=== PATIENT | male | born 1985 | race Caucasian/White ===

== ENCOUNTER 2018-05-26 16:29 | Emergency (ER) | payer OTHER ==
[2018-05-26 16:47] VITALS: BP 144/87; PULSE 62; TEMP 98.2; BMI 35.2
[2018-05-26] MEDS ORDERED: PANTOPRAZOLE SODIUM 40 MG in SODIUM CHLORIDE 100 ML IVPB ONE (16:48)
[2018-05-26] MEDS ORDERED: SODIUM CHLORIDE 1,000 ML IV STA (16:48)
[2018-05-26] MEDS ORDERED: KETOROLAC TROMETHAMINE 30 MG/1 ML VIAL IVPUSH ONE (16:48)
[2018-05-26] MEDS ORDERED: ONDANSETRON 4 MG/2 ML VIAL IVPUSH ONE (16:49)
--- NOTE | 2018-05-26 16:52 | PDOC ---
Rapid Medical Evaluation Chief Complaint: Pain, Acute Time Seen by Provider: 05/26/18 16:48 Medical Evaluation: Allergies Allergy/AdvReac Type Severity Reaction Status Date / Time No Known Allergies Allergy Verified 05/26/18 16:43 Vital Signs Temp Pulse Resp BP Pulse Ox 98.2 F 62 19 144/87 98 05/26/18 16:43 05/26/18 16:43 05/26/18 16:43 05/26/18 16:43 05/26/18 16:43 05/26/18 16:50 Pt c/o: epigastric pain with nausea x 3 days, worsening, denies GI d/o, took pepto bismal w/ mod effect yesterday Pt on exam: Vss< no ruq pain, + epigastric tenderness Pt ordered for : labs, meds pt to proceed to the ED Discharge Disposition - Diagnosis Epigastric abdominal pain - Referrals - Patient Instructions - Post Discharge Activity
[2018-05-26] MEDS ORDERED: PANTOPRAZOLE SODIUM 40 MG/100 ML BAG IVPB ONE (17:06)
[2018-05-26 17:21] LABS: BASO % 0.5 % (0-2.0); EOS % 0.8 % (0-4.5); HEMATOCRIT 45.9 % (35.4-49); HEMOGLOBIN 15.9 GM/dL (11.7-16.9); LYMPH % 23.5 % (8-40); MCH 30.3 pg (25.7-33.7); MCHC 34.5 g/dl (32.0-35.9); MEAN CELL VOLUME 87.6 fl (80-96); MEAN PLT VOLUME 7.2 fl (7.5-11.1); MONO % 4.8 % (3.8-10.2); NEUT % 70.4 % (42.8-82.8); PLATELET COUNT 268 K/MM3 (134-434); RBC 5.24 M/mm3 (4.00-5.60); RDW 13.6 % (11.9-15.9); WHITE BLOOD COUNT 8.4 K/mm3 (4.0-10.0)
[2018-05-26 17:24] LABS: URINE APPEARANCE CLEAR; URINE BILIRUBIN NEGATIVE (<2.0 mg/dL); URINE COLOR YELLOW; URINE GLUCOSE (UA) NEGATIVE (NEGATIVE); URINE KETONE NEGATIVE (NEGATIVE); URINE LEUK ESTERASE NEGATIVE (NEGATIVE); URINE NITRITE NEGATIVE (NEGATIVE); URINE PROTEIN NEGATIVE (NEGATIVE); URINE UROBILINOGEN NEGATIVE mg/dL (0.2-1.0)
[2018-05-26 17:45] LABS: ALBUMIN 4.2 g/dl (3.4-5.0); ALK PHOS 77 U/L (45-117); ANION GAP 8 (8-16); BILIRUBIN,TOTAL 0.6 mg/dL (0.2-1.0); BLOOD UREA NITROGEN 15 mg/dL (7-18); CALCIUM 8.9 mg/dL (8.5-10.1); CHLORIDE 107 mmol/L (98-107); CO2 26 mmol/L (21-32); CREATININE 1.1 mg/dL (0.7-1.3); GLUCOSE,RANDOM 108 mg/dL (74-106); LIPASE 90 U/L (73-393); MAGNESIUM 2.3 mg/dL (1.8-2.4); POTASSIUM 3.8 mmol/L (3.5-5.1); SGOT/AST 26 U/L (15-37); SGPT/ALT 38 U/L (12-78); SODIUM 141 mmol/L (136-145); TOT PROT 7.7 g/dl (6.4-8.2)
[2018-05-26] MEDS ORDERED: KETOROLAC TROMETHAMINE 30 MG/1 ML VIAL ONE (18:52)
[2018-05-26] MEDS ORDERED: ONDANSETRON 4 MG/2 ML VIAL ONE (18:52)
[2018-05-26] MEDS ORDERED: LIDOCAINE VISCOUS 2% ORAL/TOP 20 ML UNIT-DOSE CUP MM ONE (19:03)
[2018-05-26] MEDS ORDERED: MAG HYDROX/AL HYDROX/SIMETH 30 ML UNIT-DOSE CUP PO ONE (19:03)
--- NOTE | 2018-05-26 19:03 | PDOC ---
History of Present Illness - General Chief Complaint: Pain, Acute Stated Complaint: STOMACH PAIN Time Seen by Provider: 05/26/18 16:48 - History of Present Illness Initial Comments: 05/26/18 20:08 The patient is a 32 year old male with no significant PMH who presents for evaluation of epigastric abdominal pain. The patient notes onset of cramping epigastric abdominal pain earlier today prompting his presentation to the ED for further evaluation. He noted some nausea and one episode of non-bilious, non-bloody vomiting as well. He received protonix, ns, and toradol in triage and notes improvement in his symptoms since then. He otherwise denies fevers, chills, SOB, chest pain, or changes with urination or bowel movements. Past History - Past Medical History Allergies/Adverse Reactions: Allergies Allergy/AdvReac Type Severity Reaction Status Date / Time No Known Allergies Allergy Verified 05/26/18 16:43 Home Medications: Ambulatory Orders Famotidine [Pepcid -] 20 mg PO DAILY #30 tablet 05/26/18 COPD: No Other medical history: SLEEP APNEA - Suicide/Smoking/Psychosocial Hx Smoking History: Never smoked Have you smoked in the past 12 months: No Hx Alcohol Use: Yes (social) Drug/Substance Use Hx: No Substance Use Type: None Review of Systems - Review of Systems Comments:: 05/26/18 20:13 Constitutional: No fevers, chills, fatigue, malaise HEENT: No Rhinorrhea, nasal congestion, visual changes Cardiovascular: No chest pain, syncope, palpitations, lightheadedness Respiratory: No Cough, SOB, Hemoptysis, Gastrointestinal: Abdominal pain, nausea, vomiting. No Constipation, Diarrhea, Melena Genitourinary: No Dysuria, Frequency, Urgency, Hesitancy, Hematuria, Flank pain Musculoskeletal: No Myalgia, arthralgia Skin: No rashes, itching, bruising, pallor Neurologic: No Headache, Dizziness, Numbness, Weakness, or Tingling Psychiatric: No Hallucinations. No SI or HI *Physical Exam - Vital Signs Last Vital Signs Temp Pulse Resp BP Pulse Ox 98.2 F 62 19 144/87 98 05/26/18 16:43 05/26/18 16:43 05/26/18 16:43 05/26/18 16:43 05/26/18 16:43 - Physical Exam Comments: 05/26/18 20:14 General Appearance: Nourished. No Apparent Distress HEENT: EOMI, DEMETRI. No Pharyngeal Erythema, Tonsillar Exudate, Tonsillar Erythema Neck: No Cervical Lymphadenopathy Respiratory/Chest: Lungs Clear, Normal Breath Sounds. No Crackles, Rales, Rhonchi, Wheezing Cardiovascular: Regular Rhythm, Regular Rate. No Murmur, Gallops, Rubs Gastrointestinal/Abdominal: Normal Bowel Sounds, Soft. Mild epigastric tenderness to palpation on exam. No Guarding, Rebound, Musculoskeletal: No CVA Tenderness Extremity: Normal Capillary Refill Integumentary: Normal Color, Dry, Warm Neurologic: Fully Oriented, Alert, Normal Mood/Affect, Normal Response, ED Treatment Course - LABORATORY CBC & Chemistry Diagram: 05/26/18 17:14 05/26/18 17:14 - ADDITIONAL ORDERS Additional order review: Laboratory Results 05/26/18 05/26/18 17:14 17:14 Sodium 141 Potassium 3.8 Chloride 107 Carbon Dioxide 26 Anion Gap 8 BUN 15 Creatinine 1.1 Creat Clearance w eGFR > 60 Random Glucose 108 H Calcium 8.9 Magnesium 2.3 Total Bilirubin 0.6 AST 26 ALT 38 Alkaline Phosphatase 77 Total Protein 7.7 Albumin 4.2 Lipase 90 Urine Color Yellow Urine Appearance Clear Urine pH 6.0 Ur Specific Angier 1.027 Urine Protein Negative Urine Glucose (UA) Negative Urine Ketones Negative Urine Blood Negative Urine Nitrite Negative Urine Bilirubin Negative Urine Urobilinogen Negative Ur Leukocyte Esterase Negative 05/26/18 17:14 RBC 5.24 MCV 87.6 MCHC 34.5 RDW 13.6 MPV 7.2 L Neutrophils % 70.4 Lymphocytes % 23.5 Monocytes % 4.8 Eosinophils % 0.8 Basophils % 0.5 - Medications Given in the ED: ED Medications Discontinued Medications Generic Name Dose Route Start Last Admin Trade Name Freq PRN Reason Stop Dose Admin Pantoprazole Sodium 40 mg/ 100 mls @ 200 mls/hr 05/26/18 16:48 05/26/18 17:22 Sodium Chloride IVPB 05/26/18 17:17 200 mls/hr ONCE ONE Administration Sodium Chloride 1,000 mls @ 1,000 mls/hr 05/26/18 16:48 05/26/18 17:22 Normal Saline - IV 05/26/18 17:47 1,000 mls/hr ASDIR STA Administration Ketorolac Tromethamine 30 mg 05/26/18 16:48 05/26/18 18:58 Toradol Injection - IVPUSH 05/26/18 16:49 30 mg ONCE ONE Administration Ondansetron HCl 4 mg 05/26/18 16:49 05/26/18 18:58 Zofran Injection IVPUSH 05/26/18 16:50 4 mg ONCE ONE Administration Medical Decision Making - Medical Decision Making 05/26/18 20:15 The patient is a 32 year old male with no significant PMH who presents for evaluation of epigastric abdominal pain. Given the patient's history and physical exam, it is likely his symptoms are due to a gastritis. Lab results obtained in triage including a cbc, cmp, lipase, ua, are unremarkable. We will treat the patient with pepcid, maalox, and viscous lidocaine. The patient appears clinically improved on exam and we are comfortable discharging the patient home with GI follow up. We discussed the results, plan, and return precautions with the patient who voiced understanding and is agreeable with the plan. *DC/Admit/Observation/Transfer Diagnosis at time of Disposition: Epigastric abdominal pain - Discharge Dispostion Disposition: HOME Condition at time of disposition: Stable Decision to Admit order: No - Prescriptions Prescriptions: Famotidine [Pepcid -] 20 mg PO DAILY #30 tablet - Referrals Referrals: Jose Adame DO [Staff Physician] - - Patient Instructions Printed Discharge Instructions: DI for Abdominal Pain-Adult Additional Instructions: Please return to the ER if you experience concerning or worsening symptoms including worsening pain, fevers, or vomiting. Your lab results were normal here in the ER. We have sent a prescription for pepcid to your pharmacy that you may take daily to help manage your symptoms. Please call to schedule a follow up appointment with your primary care provider and our GI specialist Dr. Adame within 2-3 days to discuss your ER visit and further management of your symptoms. - Post Discharge Activity
[2018-05-26] MEDS ORDERED: FAMOTIDINE 20 MG/50 ML IVPB 20 MG/50 ML MG IVPB ONE ×2 (19:15→19:58)
--- NOTE | 2018-05-26 19:17 | PDOC ---
Attending Attestation - Resident Resident Name: Mukul Mckeon - ED Attending Attestation I have performed the following: I have examined & evaluated the patient, The case was reviewed & discussed with the resident, I agree w/resident's findings & plan, Exceptions are as noted <Anatoliy Paul - Last Filed: 05/26/18 19:17> - HPI HPI: 05/26/18 19:33 The patient is a 32 year old male with no past medical history presents to the emergency department with abdominal pain. The patient presents with abdominal pain for the past 3 days accompanied with nausea, 10/10 in severity, mild relief with pepto bismol. The patient denies diarrhea, sick contact or a fever. Allergies: NKDA Social history: Social use of alcohol. Denies the history of smoking or recreational drugs. Surgical history: None reported PCP: None reported. - Physicial Exam PE: 05/26/18 19:20 GENERAL: Well developed, well nourished. Awake and alert. No acute distress. HEENT: Normocephalic, atraumatic. PERRLA, EOMI. No conjunctival pallor. Sclera are non- icteric. Moist mucous membranes. Oropharynx is clear. NECK: Supple. Full ROM. No JVD. Carotid pulses 2+ and symmetric, without bruits. No thyromegaly. No lymphadenopathy. CARDIOVASCULAR: Regular rate and rhythm. No murmurs, rubs, or gallops. Distal pulses are 2+ and symmetric. PULMONARY: No evidence of respiratory distress. Lungs clear to auscultation bilaterally. No wheezing, rales or rhonchi. ABDOMINAL: Soft. Non-tender. Non-distended. No rebound or guarding. No organomegaly. Normoactive bowel sounds. MUSCULOSKELETAL Normal range of motion at all joints. No bony deformities or tenderness. No CVA tenderness. EXTREMITIES: No cyanosis. No clubbing. No edema. No calf tenderness. SKIN: Warm and dry. Normal capillary refill. No rashes. No jaundice. NEUROLOGICAL: Alert, awake, appropriate. Cranial nerves 2-12 intact. No deficits to light touch and temperature in face, upper extremities and lower extremities. No motor deficits in the in face, upper extremities and lower extremities. Normoreflexic in the upper and lower extremities. Normal speech. Toes are down- going bilaterally. Gait is normal without ataxia. PSYCHIATRIC: Cooperative. Good eye contact. Appropriate mood and affect. - Medical Decision Making 05/26/18 19:21 Documentation prepared by Ira Izaguirre, acting as medical record coder for Anatoliy Paul MD. <Ira Izaguirre - Last Filed: 05/26/18 19:34>
[2018-05-26] MEDS ORDERED: LIDOCAINE VISCOUS 2% ORAL/TOP 20 ML UNIT-DOSE CUP ONE (19:58)
[2018-05-26] MEDS ORDERED: MAG HYDROX/AL HYDROX/SIMETH 30 ML UNIT-DOSE CUP ONE (19:58)
== END 2018-05-26 21:02 | disposition home or self-care (01) ==
LOC: JER 16:29
DX: K29.70 Gastritis, unspecified, without bleeding (principal); G47.30 Sleep apnea, unspecified
CPT/HCPCS: 36415; 80053; 81003; 83690; 83735; 85025; 99283-25; J7030

== ENCOUNTER 2018-08-02 21:06 | Emergency (ER) | payer OTHER ==
[2018-08-02 21:09] VITALS: TEMP 98.1; BMI 34.4
[2018-08-02] MEDS ORDERED: SODIUM CHLORIDE 1,000 ML IV STA (21:28)
[2018-08-02] MEDS ORDERED: LIDOCAINE VISCOUS 2% ORAL/TOP 20 ML UNIT-DOSE CUP MM ONE (21:29)
[2018-08-02] MEDS ORDERED: MAG HYDROX/AL HYDROX/SIMETH 30 ML UNIT-DOSE CUP PO ONE (21:29)
--- NOTE | 2018-08-02 21:30 | PDOC ---
History of Present Illness - General Chief Complaint: Pain Stated Complaint: ABDOMINAL PAIN Time Seen by Provider: 08/02/18 21:22 History Source: Patient Exam Limitations: No Limitations - History of Present Illness Travel History: No Initial Comments: 08/02/18 21:30 HISTORY OF PRESENT ILLNESS: Sit 32-year-old male past medical history of ALETHA who presents emergency Department with epigastric pain starting at approximately 2:00 this afternoon. Patient states she had sushi and coffee for lunch when the pain had started. Patient took Pepcid 20 mg 2 doses with minimal relief of symptoms. Patient states she's been belching and passing gas which helped relieve his pain. Patient states the pain worsens after drinking coffee and also with deep expiration. Patient reports one episode of nonbilious nonbloody vomiting since 2:00 this afternoon. Patient had a similar episode in April of this year which revealed a normal workup and was referred to a GI specialist. Patient was due to have additional testing done with Dr. Escalera as an outpatient but did not complete evaluation. He denies fevers, chills, chest pain, shortness of breath, consultation, diarrhea, dysuria. No recent travel or sick contacts. PAST MEDICAL HISTORY: ALETHA SURGICAL HISTORY: Denies ALLERGIES: No known drug allergies REVIEW OF SYSTEMS General/Constitutional: Denies fever or chills. Denies weakness, weight change. HEENT: Denies change in vision. Denies ear pain or discharge. Denies sore throat. Cardiovascular: Denies chest pain or shortness of breath. Respiratory: Denies cough, wheezing, or hemoptysis. Gastrointestinal: Denies nausea, diarrhea or constipation. Denies rectal bleeding. Epigastric pain. 1 episode of NBNB vomit. Genitourinary: Denies dysuria, frequency, or change in urination. Musculoskeletal: Denies joint or muscle swelling or pain. Denies neck or back pain. Skin and breasts: Denies rash or easy bruising. Neurologic: Denies headache, vertigo, loss of consciousness, or loss of sensation. Psychiatric: Denies depression or anxiety. Endocrine: Denies increased thirst. Denies abnormal weight change. Hematologic/Lymphatic: Denies anemia, easy bleeding, or history of blood clots. Allergic/Immunologic: Denies hives or skin allergy. Denies latex allergy. PHYSICAL EXAM General Appearance: Well-appearing, appropriately dressed. No apparent distress , no intoxication. HEENT: EOMI, PERRLA, normal ENT inspection, normal voice, TMs normal, pharynx normal. No conjunctival pallor. No photophobia, scleral icterus. Neck: Supple. Trachea midline. No tenderness, rigidity, carotid bruit, stridor , lymphadenopathy, or thyromegaly. Respiratory/Chest: Lungs CTAB. No shortness of breath, chest tenderness, respiratory distress, accessory muscle use. No crackles, rales, rhonchi, stridor , wheezing, dullness Cardiovascular: RRR. S1, S2. No JVD, murmur, bradycardia, tachycardia. Vascular Pulses: Dorsalis-Pedis (R): 2+, Dorsalis-Pedis (L): 2+ Gastrointestinal/Abdominal: Normal bowel sounds. Abdomen soft, non-distended. Epigastric tenderness. No rebound tenderness. No organomegaly, pulsatile mass, guarding, hernia, hepatomegaly, splenomegaly. Lymphatic: No adenopathy, tenderness. Musculoskeletal/Extremities: Normal inspection. FROM of all extremities, normal capillary refill. Pelvis Stable. No CVA tenderness. No tenderness to extremities, pedal edema, swelling, erythema or deformity. Integumentary: Appropriate color, dry, warm. 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 Fully oriented, alert. Appropriate mood/affect. Motor strength 5/5. No appreciable EOM palsy, facial droop or sensory deficit. Past History - Past Medical History Allergies/Adverse Reactions: Allergies Allergy/AdvReac Type Severity Reaction Status Date / Time No Known Allergies Allergy Verified 08/02/18 21:09 Home Medications: Ambulatory Orders Famotidine [Pepcid -] 20 mg PO DAILY #30 tablet 08/02/18 COPD: No - Suicide/Smoking/Psychosocial Hx Smoking History: Never smoked Have you smoked in the past 12 months: No Hx Alcohol Use: Yes (social) Drug/Substance Use Hx: No Substance Use Type: None *Physical Exam - Vital Signs Last Vital Signs Temp Pulse Resp BP Pulse Ox 98.1 F 72 18 124/83 98 08/02/18 21:07 08/02/18 21:07 08/02/18 21:07 08/02/18 21:07 08/02/18 21:07 ED Treatment Course - LABORATORY CBC & Chemistry Diagram: 08/02/18 21:55 08/02/18 21:55 Medical Decision Making - Medical Decision Making 08/02/18 21:40 A/P: 32-year-old male with sharp epigastric pain since 2:00 this evening Abdomen soft Epigastric tenderness without guarding noted Remainder of abdomen is benign Palpable masses noted DDx: gastritis, GERD, hiatal hernia, ACS, pancreatitis Labs, EKG, normal saline, viscous lidocaine, Maalox, reassess 08/02/18 22:42 EKG reviewed by me and Dr. Mcfadden: Sinus rhythm with rate of 66. Normal intervals. No ischemic changes present. Laboratory testing unremarkable. Repeat abdominal exam is benign. No epigastric tenderness anymore. Patient states complete relief of pain after receiving fluids and medications. It was safe to discharge the patient home to follow-up with his GI specialist. *DC/Admit/Observation/Transfer Diagnosis at time of Disposition: Epigastric abdominal pain - Discharge Dispostion Disposition: HOME Condition at time of disposition: Stable Decision to Admit order: No - Prescriptions Prescriptions: Famotidine [Pepcid -] 20 mg PO DAILY #30 tablet - Referrals Referrals: Jose Escalera DO [Staff Physician] - - Patient Instructions Additional Instructions: Avoid spicy foods and caffeine. Keep well-hydrated No well-balanced diet. Continue to use pepcid as needed for pain. You may use Maalox or Mylanta for relief of pain. Follow boot maker's instructions for dosage. Make an appointment with Dr. Escalera for reevaluation. Please finish her evaluation with the GI specialist you can get an answer to your pain. Return to emergency department for any concerns. - Post Discharge Activity
[2018-08-02 22:07] LABS: BASO % 0.7 % (0-2.0); EOS % 1.4 % (0-4.5); HEMATOCRIT 46.5 % (35.4-49); HEMOGLOBIN 15.9 GM/dL (11.7-16.9); MCH 29.7 pg (25.7-33.7); MCHC 34.2 g/dl (32.0-35.9); MEAN CELL VOLUME 86.9 fl (80-96); MEAN PLT VOLUME 7.1 fl (7.5-11.1); MONO % 5.2 % (3.8-10.2); NEUT % 71.7 % (42.8-82.8); PLATELET COUNT 254 K/MM3 (134-434); RBC 5.35 M/mm3 (4.00-5.60); RDW 13.2 % (11.9-15.9)
[2018-08-02] MEDS ORDERED: MAG HYDROX/AL HYDROX/SIMETH 30 ML UNIT-DOSE CUP ONE (22:13)
[2018-08-02] MEDS ORDERED: LIDOCAINE VISCOUS 2% ORAL/TOP 20 ML UNIT-DOSE CUP ONE (22:13)
[2018-08-02 22:28] LABS: URINE APPEARANCE CLEAR; URINE BILIRUBIN NEGATIVE (<2.0 mg/dL); URINE COLOR LTYELLOW; URINE GLUCOSE (UA) NEGATIVE (NEGATIVE); URINE KETONE NEGATIVE (NEGATIVE); URINE LEUK ESTERASE NEGATIVE (NEGATIVE); URINE NITRITE NEGATIVE (NEGATIVE); URINE PROTEIN NEGATIVE (NEGATIVE); URINE UROBILINOGEN NEGATIVE mg/dL (0.2-1.0)
[2018-08-02 22:34] LABS: ALBUMIN 3.6 g/dl (3.4-5.0); ALK PHOS 75 U/L (45-117); ANION GAP 8 MMOL/L (8-16); BILIRUBIN,TOTAL 0.7 mg/dL (0.2-1); BLOOD UREA NITROGEN 12 mg/dL (7-18); CALCIUM 8.5 mg/dL (8.5-10.1); CHLORIDE 107 mmol/L (98-107); CO2 26 mmol/L (21-32); CREATININE 0.9 mg/dL (0.55-1.3); GLUCOSE,RANDOM 118 mg/dL (74-106); LIPASE 70 U/L (73-393); POTASSIUM 4.2 mmol/L (3.5-5.1); SGOT/AST 24 U/L (15-37); SGPT/ALT 27 U/L (13-61); SODIUM 140 mmol/L (136-145); TOT PROT 7.3 g/dl (6.4-8.2)
[2018-08-02 23:04] VITALS: BP 108/66; PULSE 63
--- NOTE | 2018-08-04 11:04 | EKG ---
Test Reason : Blood Pressure : / mmHG Vent. Rate : 066 BPM Atrial Rate : 066 BPM P-R Int : 194 ms QRS Dur : 114 ms QT Int : 394 ms P-R-T Axes : 051 -10 041 degrees QTc Int : 413 ms NORMAL SINUS RHYTHM WITH SINUS ARRHYTHMIA NONSPECIFIC T WAVE ABNORMALITY ABNORMAL ECG NO PREVIOUS ECGS AVAILABLE Confirmed by CHELSI HOWARD, MARIBELL ([id number]) on 08/04/2018 11:04:22 AM Referred By: Confirmed By:MARIBELL GAGNON MD
== END 2018-08-02 23:31 | disposition home or self-care (01) ==
LOC: JER 21:06
PROC: 3E0337Z Introduction of Electrolytic and Water Balance Substance into Peripheral Vein, Percutaneous Approach (ICD-10-PCS; principal; 2018-08-02)
DX: R10.13 Epigastric pain (principal); K80.50 Calculus of bile duct without cholangitis or cholecystitis without obstruction; G47.33 Obstructive sleep apnea (adult) (pediatric)
CPT/HCPCS: 36415; 80053; 81003; 82550; 82553; 83690; 84484; 85025; 93005; 93010; 96360; 99283-25; J7030

== ENCOUNTER 2018-08-03 01:20 | Inpatient (IN) | payer OTHER ==
--- NOTE | 2018-08-03 01:41 | PDOC ---
History of Present Illness <Joseline Mcfadden - Last Filed: 08/03/18 02:54> - General History Source: Patient Exam Limitations: No Limitations - History of Present Illness Travel History: No Initial Comments: 08/03/18 01:41 HPI: This is a 32-year-old male who was seen and evaluated by me earlier today for epigastric pain. Laboratory testing and workup at that time was unremarkable. The patient returns home leg on the bed and the pain returned. Patient had not eaten anything in between visits. Patient is here for reevaluation of his abdominal pain. No recent travel or sick contacts. PAST MEDICAL HISTORY: ALETHA SURGICAL HISTORY: Denies ALLERGIES: No known drug allergies REVIEW OF SYSTEMS General/Constitutional: Denies fever or chills. Denies weakness, weight change. HEENT: Denies change in vision. Denies ear pain or discharge. Denies sore throat. Cardiovascular: Denies chest pain or shortness of breath. Respiratory: Denies cough, wheezing, or hemoptysis. Gastrointestinal: Denies nausea, diarrhea or constipation. Denies rectal bleeding. Epigastric pain. 1 episode of NBNB vomit. Genitourinary: Denies dysuria, frequency, or change in urination. Musculoskeletal: Denies joint or muscle swelling or pain. Denies neck or back pain. Skin and breasts: Denies rash or easy bruising. Neurologic: Denies headache, vertigo, loss of consciousness, or loss of sensation. Psychiatric: Denies depression or anxiety. Endocrine: Denies increased thirst. Denies abnormal weight change. Hematologic/Lymphatic: Denies anemia, easy bleeding, or history of blood clots. Allergic/Immunologic: Denies hives or skin allergy. Denies latex allergy. PHYSICAL EXAM General Appearance: Well-appearing, appropriately dressed. No apparent distress , no intoxication. HEENT: EOMI, PERRLA, normal ENT inspection, normal voice, TMs normal, pharynx normal. No conjunctival pallor. No photophobia, scleral icterus. Neck: Supple. Trachea midline. No tenderness, rigidity, carotid bruit, stridor , lymphadenopathy, or thyromegaly. Respiratory/Chest: Lungs CTAB. No shortness of breath, chest tenderness, respiratory distress, accessory muscle use. No crackles, rales, rhonchi, stridor , wheezing, dullness Cardiovascular: RRR. S1, S2. No JVD, murmur, bradycardia, tachycardia. Vascular Pulses: Dorsalis-Pedis (R): 2+, Dorsalis-Pedis (L): 2+ Gastrointestinal/Abdominal: Normal bowel sounds. Abdomen soft, non-distended. Epigastric tenderness. No rebound tenderness. No organomegaly, pulsatile mass, guarding, hernia, hepatomegaly, splenomegaly. Lymphatic: No adenopathy, tenderness. Musculoskeletal/Extremities: Normal inspection. FROM of all extremities, normal capillary refill. Pelvis Stable. No CVA tenderness. No tenderness to extremities, pedal edema, swelling, erythema or deformity. Integumentary: Appropriate color, dry, warm. 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 Fully oriented, alert. Appropriate mood/affect. Motor strength 5/5. No appreciable EOM palsy, facial droop or sensory deficit. <Shad Mayo - Last Filed: 08/03/18 03:49> - General Stated Complaint: STOMACH PAIN/REVISIT Time Seen by Provider: 08/03/18 01:23 Past History <Joseline Mcfadden - Last Filed: 08/03/18 02:54> - Past Medical History COPD: No - Suicide/Smoking/Psychosocial Hx Smoking History: Never smoked Have you smoked in the past 12 months: No Hx Alcohol Use: Yes (social) Drug/Substance Use Hx: No Substance Use Type: None <Shad Mayo - Last Filed: 08/03/18 03:49> - Past Medical History Allergies/Adverse Reactions: Allergies Allergy/AdvReac Type Severity Reaction Status Date / Time No Known Allergies Allergy Verified 08/03/18 01:49 Home Medications: Ambulatory Orders Famotidine [Pepcid -] 20 mg PO DAILY #30 tablet 08/02/18 *Physical Exam - Vital Signs Last Vital Signs Temp Pulse Resp BP Pulse Ox 98.9 F 96 H 20 132/74 98 08/03/18 01:25 08/03/18 01:25 08/03/18 01:25 08/03/18 01:25 08/03/18 01:25 <Joseline Mcfadden - Last Filed: 08/03/18 02:54> ED Treatment Course - Medications Given in the ED: ED Medications Discontinued Medications Generic Name Dose Route Start Last Admin Trade Name Freq PRN Reason Stop Dose Admin Sodium Chloride 1,000 mls @ 1,000 mls/hr 08/03/18 01:45 08/03/18 02:02 Normal Saline - IV 08/03/18 02:44 1,000 mls/hr ASDIR STA Administration <Joseline Mcfadden - Last Filed: 08/03/18 02:54> Medical Decision Making - Medical Decision Making 08/03/18 02:54 Patient Name: KYLEE CHACKO THIS IS A PRELIMINARY REPORT FROM [facility]CE[facility]PER[facility] DATE OF SERVICE: 2018-08-03 01:41:46 IMAGES: 47 EXAM: ULTRASOUND ABDOMEN INCOMPLETE Cholelithiasis without acute cholecystitis. Gallbladder sludge. Multiple probable stones measuring up to 5-6 mm in common duct. Top normal common duct diameter, 6 mm. Unremarkable liver, right kidney and visualized aorta and pancreas. THIS DOCUMENT HAS BEEN ELECTRONICALLY SIGNED <Joseline Mcfadden - Last Filed: 08/03/18 02:54> - Medical Decision Making 08/03/18 01:43 A/P: 32-year-old male with epigastric pain Evaluated earlier today with unremarkable laboratory testing. EKG showed no ischemic changes at that time. Patient has recurrent pain I will obtain u/s. 08/03/18 02:55 Patient is unable to tolerate PO's at this time. I will admit the patient to [facility] for continued evaluation and GI consult. 08/03/18 03:48 Case d/w Richi Aviles who acceptrs pt to observation under Dr. Matute. <Shad Mayo - Last Filed: 08/03/18 03:49> *DC/Admit/Observation/Transfer <Joseline Mcfadden - Last Filed: 08/03/18 02:54> - Discharge Dispostion Decision to Admit order: Yes <Shad Mayo - Last Filed: 08/03/18 03:49> Diagnosis at time of Disposition: Choledocholithiasis - Discharge Dispostion Condition at time of disposition: Fair
[2018-08-03] MEDS ORDERED: SODIUM CHLORIDE 1,000 ML IV STA (01:45)
[2018-08-03] MEDS ORDERED: morphine CARPU-JECT 4 MG/1 ML DISP.SYRIN IVPUSH ONE (02:58)
[2018-08-03] MEDS ORDERED: ONDANSETRON 4 MG/2 ML VIAL IVPUSH ONE (02:59)
--- NOTE | 2018-08-03 03:36 | PN ---
Teaching Attending Note Name of Resident: Frederick Stewart ATTENDING PHYSICIAN STATEMENT I saw and evaluated the patient. I reviewed the resident's note and discussed the case with the resident. I agree with the resident's findings and plan as documented. SUBJECTIVE: Patient is a 32 year old man with history of ALETHA who was seen and evaluated by me earlier today for epigastric pain. Laboratory testing and workup at that time was unremarkable. Patient had not eaten anything in between visits. Patient is here for reevaluation of his abdominal pain. He was seen in the ER on 05/26/18 for similar epigastric pain and got relief with PPI, toradol and IV NS. OBJECTIVE: Alert Vital Signs Period Temp Pulse Resp BP Sys/Child Pulse Ox Last 24 Hr 98.9 F 96 20 132/74 98 HEENT: No Jaundice, eye redness or discharge, PERRLA, EOMI. Normocephalic, atraumatic. External ears are normal and hearing is grossly intact. No nasal discharge. Neck: Supple, nontender. No palpable adenopathy or thyromegaly. No JVD Chest: Good effort. Clear to auscultation and percussion. Heart: Regular. No S3, rub or murmur Abdomen: Not distended, soft, epigastric tenderness and no HSM. No rebound or guarding. Normoactive bowel sounds. Ext: Peripheral pulses intact. No leg edema. Skin: Warm and dry. No petechiae, rash or ecchymosis. Neuro: Alert. Oriented x3. CN 2-12 grossly intact. Sensation grossly intact in all four extremities and DTR are symmetric. Home Medications Medication Instructions Recorded Famotidine [Pepcid -] 20 mg PO DAILY #30 tablet 08/02/18 ASSESSMENT AND PLAN: 1. Abdominal pain - Likely due to choledocholithiasis. Laboratory work from his earlier visit did not reveal any abnormality. Will continue IV zofran, morphine and IV NS. Consult GI. 2. DVT prophylaxis - Lovenox 40 mg SQ q 24 hours. 3. Advance directives - Full code
[2018-08-03] MEDS ORDERED: ONDANSETRON 4 MG/2 ML VIAL IVPUSH PRN (04:51)
[2018-08-03] MEDS ORDERED: morphine SULFATE 4 MG/ML VIAL ONE (04:51)
[2018-08-03] MEDS ORDERED: ONDANSETRON 4 MG/2 ML VIAL ONE (04:51)
--- NOTE | 2018-08-03 04:56 | HP ---
CHIEF COMPLAINT:Abdominal pain HISTORY OF PRESENT ILLNESS: 32M with PMH of ALETHA, presented to the ER last night with abdominal pain. Was given maalox, vicous lidocaine and PPI and felt better and was sent home. Within a couple of hours of being home the patient was unable to sleep due to the pain. He did not eat anything since going home and coming back. Has US done today which shows 5-6mm stone in CBD. He had a few episodes of NB/NB vomiting. He is currently still in pain but it is improved and patient was sleeping when i went to go see him. He denies fever, chills, chest pain, SOB, urianry symtpoms , diarrhea, or constipation. Recent Travel:denies PAST MEDICAL HISTORY:ALETHA PAST SURGICAL HISTORY:Denies Social History: Smoking:Denies Alcohol:Denies Drugs: Denies Family History:N/A Allergies No Known Allergies Allergy (Verified 08/03/18 01:49) HOME MEDICATIONS: Home Medications Medication Instructions Recorded Famotidine [Pepcid -] 20 mg PO DAILY #30 tablet 08/02/18 REVIEW OF SYSTEMS CONSTITUTIONAL: Absent: fever, chills, diaphoresis, generalized weakness, malaise, loss of appetite, weight change HEENT: Absent: rhinorrhea, nasal congestion, throat pain, throat swelling, difficulty swallowing, mouth swelling, ear pain, eye pain, visual changes CARDIOVASCULAR: Absent: chest pain, syncope, palpitations, irregular heart rate, lightheadedness , peripheral edema RESPIRATORY: Absent: cough, shortness of breath, dyspnea with exertion, orthopnea, wheezing, stridor, hemoptysis GASTROINTESTINAL: Absent: abdominal distension, diarrhea, constipation, melena, hematochezia Present:nausea, vomiting, abdominal pain GENITOURINARY: Absent: dysuria, frequency, urgency, hesitancy, hematuria, flank pain, genital pain MUSCULOSKELETAL: Absent: myalgia, arthralgia, joint swelling, back pain, neck pain SKIN: Absent: rash, itching, pallor HEMATOLOGIC/IMMUNOLOGIC: Absent: easy bleeding, easy bruising, lymphadenopathy, frequent infections ENDOCRINE: Absent: unexplained weight gain, unexplained weight loss, heat intolerance, cold intolerance NEUROLOGIC: Absent: headache, focal weakness or paresthesias, dizziness, unsteady gait, seizure, mental status changes, bladder or bowel incontinence PSYCHIATRIC: Absent: anxiety, depression, suicidal or homicidal ideation, hallucinations. PHYSICAL EXAMINATION Vital Signs - 24 hr 08/03/18 01:25 Temperature 98.9 F Pulse Rate 96 H Respiratory 20 Rate Blood Pressure 132/74 O2 Sat by Pulse 98 Oximetry (%) GENERAL: Awake, alert, and fully oriented, in no acute distress. HEAD: Normal with no signs of trauma. EYES: Pupils equal, round and reactive to light, extraocular movements intact, sclera anicteric, conjunctiva clear. No lid lag. EARS, NOSE, THROAT:Dry mucous membranes. NECK: Normal range of motion, supple without lymphadenopathy, JVD, or masses. LUNGS: Breath sounds equal, clear to auscultation bilaterally. No wheezes, and no crackles. No accessory muscle use. HEART: Regular rate and rhythm, normal S1 and S2 without murmur, rub or gallop. ABDOMEN: Soft, mildly TTP in epigastrium, not distended, normoactive bowel sounds, no guarding, no rebound, no masses. MUSCULOSKELETAL: Normal range of motion at all joints. No bony deformities or tenderness. No CVA tenderness. UPPER EXTREMITIES: warm, well-perfused. LOWER EXTREMITIES: warm, well-perfused. No calf tenderness. No peripheral edema. Labs listed in prior visit dated 08/02/2018: WNL ASSESSMENT/PLAN: 32M with history of ALETHA and obesity presents to the hospital with abdominal pain found to have choledocholithiasis Problem list: Abdominal pain choledocholithiasis ALETHA Obesity Plan: Place on observation consult GI Pain control antiemetics IVF DVT PPx PPI counselled on dietary modifications weight loss and low fat diet keep NPO for now until GI evaluation Visit type - Emergency Visit Emergency Visit: Yes ED Registration Date: 08/03/18 Care time: The patient presented to the Emergency Department on the above date and was hospitalized for further evaluation of their emergent condition. - New Patient This patient is new to me today: Yes Date on this admission: 08/03/18 - Critical Care Critical Care patient: No
[2018-08-03] MEDS ORDERED: SODIUM CHLORIDE 1,000 ML IV SCH (05:00)
[2018-08-03] MEDS ORDERED: HEPARIN NA (PORCINE) 5,000 UNITS/ML 1ML VIAL SQ SCH (06:00)
[2018-08-03] MEDS ORDERED: HEPARIN NA (PORCINE) 5,000 UNITS/ML 1ML VIAL ONE (08:41)
[2018-08-03 09:34] LABS: BASO % 0.7 % (0-2.0); EOS % 1.5 % (0-4.5); HEMATOCRIT 47.3 % (35.4-49); HEMOGLOBIN 15.8 GM/dL (11.7-16.9); LYMPH % 36.3 % (8-40); MCH 29.2 pg (25.7-33.7); MCHC 33.5 g/dl (32.0-35.9); MEAN CELL VOLUME 87.4 fl (80-96); MONO % 6.7 % (3.8-10.2); NEUT % 54.8 % (42.8-82.8); PLATELET COUNT 237 K/MM3 (134-434); RBC 5.42 M/mm3 (4.00-5.60); WHITE BLOOD COUNT 7.6 K/mm3 (4.0-10.0)
[2018-08-03 09:56] LABS: ALBUMIN 3.5 g/dl (3.4-5.0); ALK PHOS 68 U/L (45-117); ANION GAP 5 MMOL/L (8-16); BILIRUBIN,TOTAL 1.1 mg/dL (0.2-1); BLOOD UREA NITROGEN 9 mg/dL (7-18); CALCIUM 8.8 mg/dL (8.5-10.1); CHLORIDE 106 mmol/L (98-107); CO2 28 mmol/L (21-32); CREATININE 0.9 mg/dL (0.55-1.3); GLUCOSE,RANDOM 87 mg/dL (74-106); MAGNESIUM 2.3 mg/dL (1.8-2.4); PHOSPHOROUS 3.3 mg/dL (2.5-4.9); SGOT/AST 14 U/L (15-37); SGPT/ALT 24 U/L (13-61); SODIUM 139 mmol/L (136-145)
--- NOTE | 2018-08-03 10:13 | PN ---
Progress Note (short form) - Note Progress Note: Subjective: feels comfortable withn o abd painnow. received morphine in ER. reports sudden onset abd pain 2 hours after breakfast yesterday, that was accompanied by N/V, of non bloody emesis. pain slightly subsided after famotidine but returned after lunch and was much more severe. He was in ER yesterday earlier for the pain but was sent home after initial improvement. He returned due to worsening pain. Objective: Vital Signs: Last Vital Signs Temp Pulse Resp BP Pulse Ox 98.1 F 60 18 104/67 96 08/03/18 08:53 08/03/18 08:53 08/03/18 08:53 08/03/18 08:53 08/03/18 08:53 Laboratory Results - last 24 hr 08/03/18 08/03/18 09:13 09:13 WBC 7.6 RBC 5.42 Hgb 15.8 Hct 47.3 MCV 87.4 MCH 29.2 MCHC 33.5 RDW 13.0 Plt Count 237 MPV 7.0 L Absolute Neuts (auto) 4.2 Neutrophils % 54.8 D Lymphocytes % 36.3 D Monocytes % 6.7 Eosinophils % 1.5 Basophils % 0.7 Nucleated RBC % 0 Sodium 139 Potassium 4.0 Chloride 106 Carbon Dioxide 28 Anion Gap 5 L BUN 9 Creatinine 0.9 Creat Clearance w eGFR > 60 Random Glucose 87 Calcium 8.8 Phosphorus 3.3 Magnesium 2.3 Total Bilirubin 1.1 H AST 14 L ALT 24 Alkaline Phosphatase 68 Total Protein 7.0 Albumin 3.5 Physical Exam: NAD , comfortable in bed, cooperative . MMM, unicteric sclera CV: RRR. No MRG Lungs: CTAB Abd:obese , soft, NT, ND, NL BS . liver is not palpated but percussed 1 cm below costal margin at mid clavicular line.. neg Brown's Ext : no edema or erythema Imaging: US report: gall stones, mild dilation of CBD. possible pericystic fluid EKG : sinus rhythm, RBBB, possible L axis , Qtc 413. Assessment/Plan: Pleasant 32 y/o man with h/o ALETHA, who presented with sudden onset of epigastric/ RUQ pain and was found to have gall stones. 1- Abd pain, N/V: prolonged persistent sx suggest possible cholecystitis vs passed stones. his LFTs are nL, but that does not exclude small CBd stones. - IVF , change to d5NS - NPo - check MRCP - consult surgery for CCY if no impacted CBd stones.dr. Fields notified - spoke with Dr. Rodriguez who agreed with plan and will evaluate - Not sure that patient has cholecystitis but will start empiric Abx , due to the possible pericystic fluid, and prolonged duration of pain . - ambrose-op risk stratification : the CCY is intermediate risk procedure , ERCP is low risk procedure. the patient himself is healthy young man withh/o ALETHA. no cardiac hx. no current sx of ACS, CHF, or arrhythmias. he has good functional capacity ( METS 14 ) . R BBB on EKG is likely due to the ALETHA. his ambrose-op risk for cardiac complications for either procedure is low. will repeat his EKG before sx to ensure no change, otherwise no other w/u indicated 2- ALETHA: place on CPAP , IPAP of 11 3- DVT PX .hold chemical in case he needs ERCP. SCADS Visit type - Emergency Visit Emergency Visit: Yes ED Registration Date: 08/03/18 Care time: The patient presented to the Emergency Department on the above date and was hospitalized for further evaluation of their emergent condition. - New Patient This patient is new to me today: Yes Date on this admission: 08/03/18 - Critical Care Critical Care patient: No
--- NOTE | 2018-08-03 11:40 | CON.GI ---
Consult Consult Specialty:: Gastroenterology ( covering Dr. Escalera) Referred by:: Dr. Frederick Stewart Reason for Consultation:: Abdominal pain - History of Present Illness Chief Complaint: 2nd episode of epigastric pain and vomiting History of Present Illness: 32M developed colicky epigastric pain without radiation yesterday but which led to bilious vomiting. He had a similar episode several weeks ago for which he saw Dr Escalera but failed to follow through with testing. No h/o GI problems. He is scheduled for a deviated septum repair and has sleep apnea. His mother had an ulcer. No melena but he had chills with the pain. Famotidine has not affected the pain. 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 (year[place] age 1 History of Recent Travel: No Home Medications - Allergies Allergies/Adverse Reactions: Allergies Allergy/AdvReac Type Severity Reaction Status Date / Time No Known Allergies Allergy Verified 08/03/18 01:49 - Home Medications Home Medications: Ambulatory Orders Famotidine [Pepcid -] 20 mg PO DAILY #30 tablet 08/02/18 Family Disease History - Family Disease History Family Disease History: Other: Mother (ulcer) Review of Systems - Review of Systems Constitutional: reports: Chills Eyes: reports: No Symptoms HENT: reports: No Symptoms Neck: reports: No Symptoms Cardiovascular: reports: No Symptoms Respiratory: reports: No Symptoms Gastrointestinal: reports: Abdominal Pain, Nausea, Vomiting Physical Exam-GI Vital Signs: Vital Signs Temperature 98.1 F 08/03/18 08:53 Pulse Rate 60 08/03/18 08:53 Respiratory Rate 18 08/03/18 08:53 Blood Pressure 104/67 08/03/18 08:53 O2 Sat by Pulse Oximetry (%) 96 08/03/18 08:53 CBC,CMP WBC 7.6 K/mm3 (4.0-10.0) 08/03/18 09:13 RBC 5.42 M/mm3 (4.00-5.60) 08/03/18 09:13 Hgb 15.8 GM/dL (11.7-16.9) 08/03/18 09:13 Hct 47.3 % (35.4-49) 08/03/18 09:13 MCV 87.4 fl (80-96) 08/03/18 09:13 MCH 29.2 pg (25.7-33.7) 08/03/18 09:13 MCHC 33.5 g/dl (32.0-35.9) 08/03/18 09:13 RDW 13.0 % (11.9-15.9) 08/03/18 09:13 Plt Count 237 K/MM3 (134-434) 08/03/18 09:13 MPV 7.0 fl (7.5-11.1) L 08/03/18 09:13 Absolute Neuts (auto) 4.2 K/mm3 (1.5-8.0) 08/03/18 09:13 Neutrophils % 54.8 % (42.8-82.8) D 08/03/18 09:13 Lymphocytes % 36.3 % (8-40) D 08/03/18 09:13 Monocytes % 6.7 % (3.8-10.2) 08/03/18 09:13 Eosinophils % 1.5 % (0-4.5) 08/03/18 09:13 Basophils % 0.7 % (0-2.0) 08/03/18 09:13 Nucleated RBC % 0 % (0-0) 08/03/18 09:13 Sodium 139 mmol/L (136-145) 08/03/18 09:13 Potassium 4.0 mmol/L (3.5-5.1) 08/03/18 09:13 Chloride 106 mmol/L (98-107) 08/03/18 09:13 Carbon Dioxide 28 mmol/L (21-32) 08/03/18 09:13 Anion Gap 5 MMOL/L (8-16) L 08/03/18 09:13 BUN 9 mg/dL (7-18) 08/03/18 09:13 Creatinine 0.9 mg/dL (0.55-1.3) 08/03/18 09:13 Creat Clearance w eGFR > 60 (>60) 08/03/18 09:13 Random Glucose 87 mg/dL (74-106) 08/03/18 09:13 Calcium 8.8 mg/dL (8.5-10.1) 08/03/18 09:13 Phosphorus 3.3 mg/dL (2.5-4.9) 08/03/18 09:13 Magnesium 2.3 mg/dL (1.8-2.4) 08/03/18 09:13 Total Bilirubin 1.1 mg/dL (0.2-1) H 08/03/18 09:13 AST 14 U/L (15-37) L 08/03/18 09:13 ALT 24 U/L (13-61) 08/03/18 09:13 Alkaline Phosphatase 68 U/L (45-117) 08/03/18 09:13 Total Protein 7.0 g/dl (6.4-8.2) 08/03/18 09:13 Albumin 3.5 g/dl (3.4-5.0) 08/03/18 09:13 Current Medications Generic Name Dose Route Start Last Admin Trade Name Freq PRN Reason Stop Dose Admin Ampicillin Sodium/Sulbactam 100 mls @ 200 mls/hr 08/03/18 15:00 Sodium 3 gm/ Sodium Chloride IVPB Q6H-IV SRAVANI Ondansetron HCl 4 mg 08/03/18 04:51 Zofran Injection IVPUSH Q6H PRN NAUSEA Pantoprazole Sodium 40 mg 08/03/18 10:00 Protonix Iv IVPUSH DAILY SRAVANI Constitutional: Yes: Calm Eyes: Yes: Conjunctiva Clear HENT: Yes: Atraumatic Neck: Yes: Trachea Midline Cardiovascular: Yes: Regular Rate and Rhythm Respiratory: Yes: CTA Bilaterally Gastrointestinal Inspection: Yes: WNL ...Auscultate: Yes: Normoactive Bowel Sounds ...Palpate: Yes: Soft, Other (nontender) ...Rectal Exam: Yes: Guaiac Negative (brown g neg stool, 1+ prostate, no masses) Edema: No Peripheral Pulses WNL: Yes Neurological: Yes: Alert, Oriented Labs: CBC, BMP 08/03/18 09:13 08/03/18 09:13 Imaging - Results Ultrasound: Report Reviewed (Marjorie Lovelace Name: KYLEE CHACKO DEPARTMENT OF RADIOLOGY Phys: Shad Mayo METEOROLOGICAL TECHNICIAN : 1985 Age: 32 Sex: M [facility] Acct: [id number] Loc: [address] Exam Date: 08/03/18 Status: [place] [address] Unit Number: [id number] EXAM#: TYPE/EXAM: RESULT: [id number] US/ABDOMEN US -LIMITED Epigastric pain Right upper abdomen ultrasound. The liver measures 17.3 cm in sagittal length with a slightly coarse echotexture. Gallbladder is adequately distended with small intraluminal stones and likely a small sludge without wall thickening. There is a questionable trace of pericholecystic free fluid. No intra or extrahepatic bile duct dilatation is seen. Common bile duct measures 6 mm in diameter which is top limits of normal. The right kidney measures 8.7 cm sagittal length and appears unremarkable. Visualized portion of the pancreas appears unremarkable Visualized portion of the proximal abdominal aorta and inferior vena cava appear unremarkable. Normal flow in the main portal vein. IMPRESSION: Gallstones with probable small sludge and without wall thickening. Questionable trace of pericholecystic free fluid versus an artifact. Borderline dilatation of the common bile duct. Mild fatty infiltration of the liver versus hepatocellular disease. Please correlate with liver enzymes. A preliminary report was forwarded by the [employer] service, [employer]. Reported By: Suresh Phillips MD 08/03/18834 Technologist: Marija Harrell Transcribed Date/Time: 08/03/18834 Real Estate Sales Supervisor: Suresh Phillips Printed Date/Time: By: Signed by: Suresh Phillips Signed on: 03-Aug-2018 08:36) Problem List - Problems (1) Epigastric abdominal pain Assessment/Plan: Given the colicky nature of the pain and small GB stones I believe that Kylee' s pain is due to biliary colic. Given his CBD dilation choledocholithiasis needs to be excluded. Dr Julien has already ordered an MRCP. I will order blood cultures and antibiotics to cover for cholangitis and cholecystitis. I have discussed the possible need for an ERCP with Kylee. I have informed him of the potential for such complications as hemorrhage, perforation and pancreatitis with multiorgan failure. He has signed an informed consent. I have discussed the case with Dr. Julien and Dr. Fields Code(s): R10.13 - EPIGASTRIC PAIN (2) Cholelithiasis Code(s): K80.20 - CALCULUS OF GALLBLADDER W/O CHOLECYSTITIS W/O OBSTRUCTION Qualifiers: Cholelithiasis location: gallbladder Cholecystitis presence: without cholecystitis Biliary obstruction: with biliary obstruction Qualified Code(s ): K80.21 - Calculus of gallbladder without cholecystitis with obstruction Assessment/Plan Blood cultures Antibiotics Await MRCP Possible ERCP tomorrow Ultimately cholecystectomy
[2018-08-03] MEDS: LACTATED RINGERS SOLUTION 1,000 ML/1,000 ML INFUS.BAG IV SCH (12:20)
[2018-08-03] MEDS: PANTOPRAZOLE SODIUM 40 MG VIAL IVPUSH SCH (12:20)
[2018-08-03] MEDS ORDERED: PANTOPRAZOLE SODIUM 40 MG VIAL ONE (12:27)
[2018-08-03 16:11] VITALS: BMI 34.0
[2018-08-03] MEDS: AMPICILLIN NA/SULBACTAM NA 3 GM in SODIUM CHLORIDE 100 ML IVPB SCH ×2 (16:15→21:46)
--- NOTE | 2018-08-03 17:07 | CONSULT ---
- Consultation REQUESTING PROVIDER: Dionne HOWARD CONSULT REQUEST: We have been asked to surgically evaluate this patient for abdominal pain PCP:Teresa Truong HISTORY OF PRESENT ILLNESS: 32 y/o o/w healthy male presented to [facility] ER w/RUQ/epigastric abdominal pain and nausea and vomiting; he has had this before which prompted an ER visit h/e a w/u was never done; pain is colicky and occurred after eating w/radiation to the back; he denies light stools and/or dark urine; he has NOC. PMHx: none PSHx: none Home Medications Medication Instructions Recorded Famotidine [Pepcid -] 20 mg PO DAILY #30 tablet 08/02/18 Allergies Allergy/AdvReac Type Severity Reaction Status Date / Time No Known Allergies Allergy Verified 08/03/18 01:49 REVIEW OF SYSTEMS: CONSTITUTIONAL: Absent: fever, chills, diaphoresis, generalized weakness, malaise, loss of appetite, weight change CARDIOVASCULAR: Absent: chest pain, syncope, palpitations, irregular heart rate, lightheadedness , peripheral edema RESPIRATORY: Absent: cough, shortness of breath, dyspnea with exertion, wheezing, stridor, hemoptysis GASTROINTESTINAL: Present: abdominal pain, abdominal distension, nausea, vomiting, GENITOURINARY: Absent: dysuria, frequency, urgency, hesitancy, hematuria, flank pain, genital pain MUSCULOSKELETAL: Absent: myalgia, arthralgia, joint swelling, back pain, neck pain SKIN: Absent: rash, itching, pallor HEMATOLOGIC/IMMUNOLOGIC: Absent: easy bleeding, easy bruising, lymphadenopathy NEUROLOGIC: Absent: headache, focal weakness, paresthesias, dizziness, unsteady gait, seizure, mental status changes, bladder or bowel incontinence PSYCHIATRIC: Absent: anxiety, depression, suicidal or homicidal ideation, hallucinations. PHYSICAL EXAM: GENERAL: Awake, alert, and fully oriented, in no acute distress. HEAD: Normal with no signs of trauma. EYES:sclera anicteric, conjunctiva clear. NECK: Normal ROM, supple without lymphadenopathy, JVD, or masses. ABDOMEN: Soft, tender RUQ and epigastrium, not distended, normoactive bowel sounds, no guarding, no rebound, no masses. No organomegaly. No hernias; no scars MUSCULOSKELETAL: Normal ROM at all joints. No bony deformities or tenderness. No CVA tenderness. UPPER EXTREMITIES: 2+ pulses, warm, well-perfused. No cyanosis. Cap refill <2 seconds. No peripheral edema. LOWER EXTREMITIES: 2+ pulses, warm, well-perfused. No calf tenderness. No peripheral edema. NEUROLOGICAL: Normal speech, gait not observed. PSYCH: Cooperative. Good eye contact. Appropriate mood and affect. SKIN: Warm, dry, normal turgor, no rashes or lesions noted. Vital Signs Temperature 97.8 F 08/03/18 15:54 Pulse Rate 54 L 08/03/18 15:54 Respiratory Rate 18 08/03/18 15:54 Blood Pressure 132/74 08/03/18 15:54 O2 Sat by Pulse Oximetry (%) 96 08/03/18 15:00 Lab Results WBC 7.6 K/mm3 (4.0-10.0) 08/03/18 09:13 RBC 5.42 M/mm3 (4.00-5.60) 08/03/18 09:13 Hgb 15.8 GM/dL (11.7-16.9) 08/03/18 09:13 Hct 47.3 % (35.4-49) 08/03/18 09:13 MCV 87.4 fl (80-96) 08/03/18 09:13 MCHC 33.5 g/dl (32.0-35.9) 08/03/18 09:13 RDW 13.0 % (11.9-15.9) 08/03/18 09:13 Plt Count 237 K/MM3 (134-434) 08/03/18 09:13 Sodium 139 mmol/L (136-145) 08/03/18 09:13 Potassium 4.0 mmol/L (3.5-5.1) 08/03/18 09:13 Chloride 106 mmol/L (98-107) 08/03/18 09:13 Carbon Dioxide 28 mmol/L (21-32) 08/03/18 09:13 Anion Gap 5 MMOL/L (8-16) L 08/03/18 09:13 BUN 9 mg/dL (7-18) 08/03/18 09:13 Creatinine 0.9 mg/dL (0.55-1.3) 08/03/18 09:13 Random Glucose 87 mg/dL (74-106) 08/03/18 09:13 8.8 mg/dL (8.5-10.1) 08/03/18 09:13 IMP: abdominal pain due to symptomatic cholelithiasis; possible choledocholithiasis. PLAN: Suggest admit/npo/ivf/ivabs/MRCP is being arranged for today by the primary care team; if negative lap brenda possible open 08/04/18; r/b/t/a's d/w patient and he wishes to proceed; he has also been seen by GI who will be available if needed for ERCP and related procedures. Marcus Fields MD FACS
[2018-08-04] MEDS ORDERED: PT OWN MED DRAWER 7, Y5N ONE ×2 (02:15→09:19)
[2018-08-04] MEDS: LACTATED RINGERS SOLUTION 1,000 ML/1,000 ML INFUS.BAG IV SCH ×4 (02:28→15:07)
[2018-08-04] MEDS: AMPICILLIN NA/SULBACTAM NA 3 GM in SODIUM CHLORIDE 100 ML IVPB SCH ×2 (03:41→09:26)
[2018-08-04 07:38] LABS: BASO % 0.6 % (0-2.0); HEMATOCRIT 43.8 % (35.4-49); HEMOGLOBIN 14.7 GM/dL (11.7-16.9); LYMPH % 35.3 % (8-40); MCH 29.5 pg (25.7-33.7); MCHC 33.7 g/dl (32.0-35.9); MEAN CELL VOLUME 87.5 fl (80-96); MEAN PLT VOLUME 7.1 fl (7.5-11.1); MONO % 6.5 % (3.8-10.2); NEUT % 55.6 % (42.8-82.8); PLATELET COUNT 214 K/MM3 (134-434); WHITE BLOOD COUNT 5.5 K/mm3 (4.0-10.0)
[2018-08-04 07:48] LABS: INR 1.08 (0.83-1.09); PROTHROMBIN TIME (PATIENT) 12.7 SEC (9.7-13.0)
[2018-08-04 08:13] LABS: ALBUMIN 3.2 g/dl (3.4-5.0); ALK PHOS 62 U/L (45-117); AMYLASE 43 U/L (25-115); ANION GAP 6 MMOL/L (8-16); BILIRUBIN,TOTAL 0.8 mg/dL (0.2-1); BLOOD UREA NITROGEN 8 mg/dL (7-18); CALCIUM 8.6 mg/dL (8.5-10.1); CHLORIDE 107 mmol/L (98-107); CHOLESTEROL 160 mg/dL (50-200); CO2 28 mmol/L (21-32); CREATININE 0.9 mg/dL (0.55-1.3); GLUCOSE,RANDOM 83 mg/dL (74-106); HDL CHOLESTEROL 28 mg/dL (40-60); MAGNESIUM 2.1 mg/dL (1.8-2.4); PHOSPHOROUS 3.2 mg/dL (2.5-4.9); POTASSIUM 4.1 mmol/L (3.5-5.1); SGOT/AST 14 U/L (15-37); SGPT/ALT 23 U/L (13-61); SODIUM 141 mmol/L (136-145); TOT PROT 6.3 g/dl (6.4-8.2); TRIGLYCERIDES 495 mg/dL (0-150)
[2018-08-04] MEDS ORDERED: BUPIVACAINE HCL/PF 0.5% (5MG/ML) 10 ML VIAL ONE (09:44)
[2018-08-04] MEDS: PANTOPRAZOLE SODIUM 40 MG VIAL IVPUSH SCH (10:16)
--- NOTE | 2018-08-04 10:17 | PN ---
Physical Exam: SUBJECTIVE: Patient seen and examined at bedside this morning. He tolerated clear liquids yesterday without abdominal pain, nausea, vomiting. He has remained NPO since midnight. Denies headache, fevers, chills, shortness of breath, chest pain, palpitations. OBJECTIVE: Vital Signs Period Temp Pulse Resp BP Sys/Child Pulse Ox Last 24 Hr 97.8 F-98.3 F 54-67 16-20 101-132/50-74 96-97 GENERAL: The patient is awake, alert, and fully oriented, in no acute distress. HEAD: Normal with no signs of trauma. EYES: PERRL, extraocular movements intact, sclera anicteric, conjunctiva clear. ENT: Oropharynx clear without exudates, or lesions. Moist mucous membranes. NECK: Supple without lymphadenopathy LUNGS: Good inspiratory effort and air entry b/l. Breath sounds equal, clear to auscultation bilaterally, no wheezes, no crackles. No accessory muscle use. HEART: Regular rate and rhythm, S1, S2 without murmur, rub or gallop. ABDOMEN: Soft, nontender to light and deep palpation X4 quadrants. No Brown's sign. Normoactive bowel sounds, no guarding, no rebound tenderness, no hepatosplenomegaly. EXTREMITIES: 2+ radial and dorsalis pedis pulses b/l. Warm, well-perfused. No lower extremity edema b/l. NEUROLOGICAL: Cranial nerves II through XII grossly intact. Strength 5/5 b/l upper and lower extremities. PSYCH: Normal mood, normal affect upon my encounter today. SKIN: Warm, dry. Laboratory Results - last 24 hr 08/04/18 08/04/18 08/04/18 06:30 06:30 06:30 WBC 5.5 RBC 5.00 Hgb 14.7 Hct 43.8 MCV 87.5 MCH 29.5 MCHC 33.7 RDW 13.0 Plt Count 214 MPV 7.1 L Absolute Neuts (auto) 3.1 Neutrophils % 55.6 Lymphocytes % 35.3 Monocytes % 6.5 Eosinophils % 2.0 Basophils % 0.6 Nucleated RBC % 0 PT with INR INR Sodium 141 Potassium 4.1 Chloride 107 Carbon Dioxide 28 Anion Gap 6 L BUN 8 Creatinine 0.9 Creat Clearance w eGFR > 60 Random Glucose 83 Calcium 8.6 Phosphorus 3.2 Magnesium 2.1 Total Bilirubin 0.8 AST 14 L ALT 23 Alkaline Phosphatase 62 C-Reactive Protein < 0.3 Cancelled Total Protein 6.3 L Albumin 3.2 L Triglycerides 495 H Cholesterol 160 Total LDL Cholesterol 78 HDL Cholesterol 28 L Total Amylase 43 Cancelled Lipase Cancelled 08/04/18 06:30 WBC RBC Hgb Hct MCV MCH MCHC RDW Plt Count MPV Absolute Neuts (auto) Neutrophils % Lymphocytes % Monocytes % Eosinophils % Basophils % Nucleated RBC % PT with INR 12.70 INR 1.08 Sodium Potassium Chloride Carbon Dioxide Anion Gap BUN Creatinine Creat Clearance w eGFR Random Glucose Calcium Phosphorus Magnesium Total Bilirubin AST ALT Alkaline Phosphatase C-Reactive Protein Total Protein Albumin Triglycerides Cholesterol Total LDL Cholesterol HDL Cholesterol Total Amylase Lipase Active Medications Generic Name Dose Route Start Last Admin Trade Name Freq PRN Reason Stop Dose Admin Ampicillin Sodium/Sulbactam 100 mls @ 200 mls/hr 08/03/18 15:00 08/04/18 09: 26 Sodium 3 gm/ Sodium Chloride IVPB 200 mls/hr Q6H-IV SRAVANI Administration Metronidazole 500 mg in 100 mls @ 100 mls/hr 08/03/18 18:00 08/04/18 02:27 Flagyl 500mg Premixed Ivpb - IVPB 100 mls/hr Q8H-IV SRAVANI Administration Lactated Ringer's 1,000 ml in 1,000 mls @ 125 mls/hr 08/03/18 12:00 08/04/18 09:25 Lactated Ringers Solution IV 125 mls/hr ASDIR SRAVANI Administration Ondansetron HCl 4 mg 08/03/18 04:51 Zofran Injection IVPUSH Q6H PRN NAUSEA Pantoprazole Sodium 40 mg 08/03/18 10:00 08/03/18 12:20 Protonix Iv IVPUSH 40 mg DAILY SRAVANI Administration ASSESSMENT/PLAN: Patient is a 32 year old male with history of obstructive sleep apnea presents with complaint of abdominal pain. Cholecystitis -Likely cause of abdominal pain is biliary colic -MRCP shows cholecystitis without choledocholithiasis -Patient for laparoscopic cholecystectomy today with Dr. Fields -Patient is low risk for intermediate risk procedure. -Unasyn 3 grams IV Q6H -Flagyl 500mg IV TID Antibiotics to be discontinued after procedure. -Protonix 40mg IV daily -Zofran 4mg IV Q6H FEN -IV actated ringers at 125mL/hour -Will follow CMP -NPO in anticipation for cholecystectomy today. Prophylaxis -Chemical anticoagulation held for cholecystectomy today. SCDs b/l lower extremities Disposition -Continue care in medical surgical floor. For cholecystectomy today. Visit type - Emergency Visit Emergency Visit: Yes ED Registration Date: 08/04/18 Care time: The patient presented to the Emergency Department on the above date and was hospitalized for further evaluation of their emergent condition. - New Patient This patient is new to me today: Yes Date on this admission: 08/04/18 - Critical Care Critical Care patient: No - Discharge Referral Referred to [facility] No
[2018-08-04] MEDS ORDERED: PROPOFOL 20 ML ONE (11:13)
[2018-08-04] MEDS ORDERED: ROCURONIUM BROMIDE 50 MG/5 ML VIAL ONE (11:13)
[2018-08-04] MEDS ORDERED: MIDAZOLAM HCL 2 MG/2 ML SINGLE DOSE VIAL ONE (11:14)
[2018-08-04] MEDS ORDERED: GLYCOPYRROLATE 0.2 MG/1 ML VIAL ONE (12:10)
[2018-08-04] MEDS ORDERED: NEOSTIGMINE METHYLSULFATE 0.5 MG/ML - 10 ML MDV ONE (12:10)
[2018-08-04] MEDS ORDERED: DEXAMETHASONE SOD PHOSPHATE 4 MG/1 ML VIAL ONE (12:10)
[2018-08-04] MEDS ORDERED: BUPIVACAINE HCL/PF (5 MG/ML) 30 ML VIAL IJ ONE (12:45)
[2018-08-04] MEDS ORDERED: ACETAMINOPHEN 1000 MG/100 ML VIAL (NON FORMULARY) IVPB PRN ×2 (13:12→13:52)
--- NOTE | 2018-08-04 13:15 | OP ---
Operative Note - Note: Operative Date: 08/04/18 Pre-Operative Diagnosis: acute cholecystitis/cholelithiasis Operation: lap brenda Findings: acute cholecystitis/cholelithiasis Post-Operative Diagnosis: Same as Pre-op Surgeon: Marcus Fields Tile Designer: Ivonne Crockett Anesthesia: General Specimens Removed: gallbladder and contents Estimated Blood Loss (mls): 30 Drains & Tubes with Location: none
--- NOTE | 2018-08-04 13:22 | PN ---
Teaching Attending Note Name of Resident: Endy Patel ATTENDING PHYSICIAN STATEMENT I saw and evaluated the patient. I reviewed the resident's note and discussed the case with the resident. I agree with the resident's findings and plan as documented. SUBJECTIVE: No fever or chills . No abd pain , no N/V , no events over night OBJECTIVE: NAD CV: RRR. No MRG Lungs: CTAB Abd: obese, soft, NT, ND, NL BS Ext : no edema or erythema Assessment/Plan: Pleasant 32 y/o man with h/o ALETHA, who presented with sudden onset of epigastric/ RUQ pain and was found to have gall stones. 1- Biliary colic: MRI with no choledocolithiasis and no evidence of cholecystitis - for CCY today - DC Abx - pain control after sx with ibuprofen 2- ALETHA: CPAP at 11 3- possible dc later today if tolerates diet .
[2018-08-04] MEDS ORDERED: ACETAMINOPHEN INJECTION 100 ML IVPB ONE (13:31)
[2018-08-04] MEDS ORDERED: oxyCODONE HCL 5 MG TABLET PO PRN (13:40)
[2018-08-04] MEDS ORDERED: ONDANSETRON 4 MG/2 ML VIAL IVPUSH PRN (13:52)
--- NOTE | 2018-08-04 14:05 | SURG ---
Surgery Tile Designer Note Tile Designer: Ivonne Crockett PA-C Date of Service: 08/04/18 Diagnosis: acute cholecystitis/cholelithiasis Procedure: laparoscopic cholecystectomy I was present for the entirety of the operative procedure. For further detail, please refer to operative report. Visit type - Case Type Case Type: ED Admission - Emergency Emergency Visit: Yes ED Registration Date: 08/04/18 Care time: The patient presented to the Emergency Department on the above date and was hospitalized for further evaluation of their emergent condition. - New patient This patient is new to me today: Yes Date on this admission: 08/04/18
[2018-08-04] MEDS: oxyCODONE HCL 5 MG TABLET PO PRN ×2 (15:16→20:50)
[2018-08-05] MEDS: LACTATED RINGERS SOLUTION 1,000 ML/1,000 ML INFUS.BAG IV SCH (06:13)
[2018-08-05 08:24] LABS: BASO % 0.2 % (0-2.0); EOS % 0.3 % (0-4.5); HEMATOCRIT 43.5 % (35.4-49); HEMOGLOBIN 14.5 GM/dL (11.7-16.9); LYMPH % 18.9 % (8-40); MCH 28.9 pg (25.7-33.7); MCHC 33.3 g/dl (32.0-35.9); MEAN CELL VOLUME 86.9 fl (80-96); MONO % 7.4 % (3.8-10.2); NEUT % 73.2 % (42.8-82.8); PLATELET COUNT 233 K/MM3 (134-434); RBC 5.01 M/mm3 (4.00-5.60); RDW 13.1 % (11.9-15.9); WHITE BLOOD COUNT 9.7 K/mm3 (4.0-10.0)
[2018-08-05 09:02] LABS: ALBUMIN 3.2 g/dl (3.4-5.0); ALK PHOS 59 U/L (45-117); ANION GAP 5 MMOL/L (8-16); BILIRUBIN,TOTAL 0.8 mg/dL (0.2-1); BLOOD UREA NITROGEN 8 mg/dL (7-18); CALCIUM 8.7 mg/dL (8.5-10.1); CHLORIDE 106 mmol/L (98-107); CO2 28 mmol/L (21-32); GLUCOSE,RANDOM 94 mg/dL (74-106); POTASSIUM 4.1 mmol/L (3.5-5.1); SGOT/AST 21 U/L (15-37); SGPT/ALT 31 U/L (13-61); SODIUM 139 mmol/L (136-145); TOT PROT 6.5 g/dl (6.4-8.2)
--- NOTE | 2018-08-05 09:16 | PN ---
Progress Note (short form) - Note Progress Note: POD #1 Alert. Doing well. C/o mild incisional tenderness. Adequate pain control. OOB and ambulating unassisted. Tolerating clear liquid diet. Passing flatus. denies n/v/f/c, CP or SOB. Last Vital Signs Temp Pulse Resp BP Pulse Ox 98.0 F 76 18 120/64 95 08/05/18 06:14 08/05/18 06:14 08/05/18 06:14 08/05/18 06:14 08/04/18 15:09 Gen: nad Abd: all surgical ports c/d/i. no hematoma LE: soft. nt bilat. Problem List - Problems (1) S/P laparoscopic cholecystectomy Assessment/Plan: diet advanced to regular. can dc home today once tolerates. f/u w/ Dr. Fields instructions in dc planning tab. on behalf of Dr. Fields, thank you for the opportunity to participate in your patient's care. Code(s): Z90.49 - ACQUIRED ABSENCE OF OTHER SPECIFIED PARTS OF DIGESTIVE TRACT
[2018-08-05 09:40] VITALS: TEMP 98.9
[2018-08-05] MEDS ORDERED: PANTOPRAZOLE SODIUM 40 MG VIAL IVPUSH SCH (10:00)
--- NOTE | 2018-08-05 10:48 | PN ---
Progress Note, Physician Chief Complaint: s/p lap cholecystectomy under general anesthesia History of Present Illness: post op day one - Current Medication List Current Medications: Active Medications Acetaminophen (Ofirmev Injection -) 1,000 mg IVPB Q6H PRN PRN Reason: FEVER Lactated Ringer's (Lactated Ringers Solution) 1,000 ml in 1,000 mls @ 125 mls/ hr IV ASDIR [facility] Last Admin: 08/05/18 06:13 Dose: 125 mls/hr Ondansetron HCl (Zofran Injection) 4 mg IVPUSH Q6H PRN PRN Reason: NAUSEA Oxycodone HCl (Roxicodone -) 5 mg PO Q4H PRN PRN Reason: PAIN LEVEL 1-5 Last Admin: 08/05/18 09:33 Dose: 5 mg Oxycodone HCl (Roxicodone -) 10 mg PO Q4H PRN PRN Reason: PAIN LEVEL 6-10 Last Admin: 08/04/18 20:50 Dose: 10 mg Pantoprazole Sodium (Protonix Iv) 40 mg IVPUSH DAILY [facility] Last Admin: 08/05/18 09:20 Dose: 40 mg - Objective Vital Signs: Vital Signs Temperature 98.9 F 08/05/18 09:20 Pulse Rate 87 08/05/18 09:20 Respiratory Rate 18 08/05/18 09:20 Blood Pressure 119/62 08/05/18 09:20 O2 Sat by Pulse Oximetry (%) 95 08/04/18 15:09 Constitutional: Yes: Well Nourished Cardiovascular: Yes: WNL Respiratory: Yes: WNL Gastrointestinal: Yes: WNL Labs: CBC, BMP 08/05/18 07:55 08/05/18 07:55 INR, PTT INR 1.08 (0.83-1.09) 08/04/18 06:30 Assessment/Plan pain well controlled, no adverse effects of anesthetic, dept of anesthesia will sign off care at this time
--- NOTE | 2018-08-05 12:03 | OP ---
DATE OF OPERATION: 08/04/2018 PREOPERATIVE DIAGNOSIS: Acute cholecystitis and cholelithiasis. PREOPERATIVE DIAGNOSIS: Acute cholecystitis and cholelithiasis. PROCEDURE: Laparoscopic cholecystectomy. SURGEON: Marcus Fields MD ACCOUNTS RECEIVABLE ASSOCIATE: Ivonne Crockett PA-C ANESTHESIA: General. OPERATIVE FINDINGS: Acute cholecystitis and cholelithiasis. The rest of the findings were unremarkable. DESCRIPTION OF PROCEDURE: The patient was placed on the operating room table in supine position. After the induction of general anesthesia, the patient's abdomen was prepped with ChloraPrep and draped in sterile fashion. Time-out was taken and then pneumoperitoneum established above the umbilicus using a Veress needle. Once 15 mm of intra-abdominal pressure was obtained, a 5-mm port was placed at the umbilicus. Additional lateral 5-mm ports and a subxiphoid 12-mm port were placed and laparoscopy carried out, and the previously noted findings were observed. The gallbladder was placed on cephalad and lateral traction, and dissection was begun at the neck of the gallbladder where the peritoneum was opened medially and laterally using blunt and sharp dissection and electrocautery. Dissection continued in the triangle of Calot where the cystic duct was identified coursing from the neck of the gallbladder distally to the common bile duct. It was dissected proximally and distally for length. Similarly, the artery was similarly identified and dissected. A critical view of safety was taken, and then the cystic duct divided proximally and distally using Endoshears after it was clipped twice proximally and distally with large hemoclips. The artery was similarly clipped and divided. Hemostasis was checked for and noted to be good and then the gallbladder was removed from the liver bed in a retrograde fashion using electrocautery. Prior to removal from the edge of the liver, hemostasis was again verified and then the gallbladder removed from the edge of the liver, placed in an Endo Catch, and brought out through the subxiphoid port. Pneumoperitoneum was reestablished, hemostasis verified again, and then the 5-mm lateral and subxiphoid ports were removed under laparoscopic vision without evidence of bleeding from the port sites. The umbilical port was removed and the pneumoperitoneum evacuated. All port sites were infiltrated with 0.5% Marcaine and the skin edges closed with 4-0 Biosyn in a subcuticular and continuous fashion. Steri-Strips and Band-Aid dressings were placed and the procedure terminated at this point and the patient aroused from general anesthesia and transferred to the post anesthesia care unit in stable condition, awake and alert. ESTIMATED BLOOD LOSS: 30 mL. REPLACEMENTS: Crystalloid. DRAINS: None. SPECIMENS: Gallbladder and contents to Pathology. I, Marcus Fields, was physically present in the operating room from the time the patient was placed on the operating room table until he was transferred to the post anesthesia care unit in my accompaniment. MD NICOLAS Luz/[id number]
[2018-08-05 13:49] VITALS: BP 125/65; PULSE 69
--- NOTE | 2018-08-05 14:39 | PN ---
Teaching Attending Note Name of Resident: Endy Patel ATTENDING PHYSICIAN STATEMENT I saw and evaluated the patient. I reviewed the resident's note and discussed the case with the resident. I agree with the resident's findings and plan as documented. SUBJECTIVE: No fever or chills . No abd pain , tolerated food well OBJECTIVE: NAD CV: RRR. No MRG Lungs: CTAB Abd: obese, soft,minimal tenderness in all quadrants sim RUQ Ext : no edema or erythema Assessment/Plan: Pleasant 32 y/o man with h/o ALETHA, who presented with sudden onset of epigastric/ RUQ pain and was found to have gall stones. 1- Acute cholecystitis: s/p cholecystectomy - tolerated diet. - pain meds ibuprofen and tyleno lafter dc - f/u with sx after dc 2- ALETHA: cont CPAP at home DC home
--- NOTE | 2018-08-05 15:10 | DS ---
Physical Exam: SUBJECTIVE: Patient seen and examined at bedside this morning. He is POD#1 s/p laparoscopic cholecystectomy. He tolerated clear liquids without abdominal pain , nausea, vomiting. Urinated, and passed flatus. Denies fevers, chill, shortness of breath, chest pain, palpitations. OBJECTIVE: Vital Signs Period Temp Pulse Resp BP Sys/Child Pulse Ox Last 24 Hr 97.8 F-98.9 F 69-88 18-20 118-125/62-84 95 PHYSICAL EXAM GENERAL: The patient is awake, alert, and fully oriented, in no acute distress. HEAD: Normal with no signs of trauma. EYES: PERRL, extraocular movements intact, sclera anicteric, conjunctiva clear. ENT: Oropharynx clear without exudates, or lesions. Moist mucous membranes. NECK: Supple without lymphadenopathy LUNGS: Good inspiratory effort and air entry b/l. Breath sounds equal, clear to auscultation bilaterally, no wheezes, no crackles. No accessory muscle use. HEART: Regular rate and rhythm, S1, S2 without murmur, rub or gallop. ABDOMEN: Soft, nontender to light and deep palpation X4 quadrants. No Brown's sign. Normoactive bowel sounds, no guarding, no rebound tenderness, no hepatosplenomegaly. EXTREMITIES: 2+ radial and dorsalis pedis pulses b/l. Warm, well-perfused. No lower extremity edema b/l. NEUROLOGICAL: Cranial nerves II through XII grossly intact. Strength 5/5 b/l upper and lower extremities. PSYCH: Normal mood, normal affect upon my encounter today. SKIN: Warm, dry. LABS Laboratory Results - last 24 hr 08/05/18 08/05/18 07:55 07:55 WBC 9.7 RBC 5.01 Hgb 14.5 Hct 43.5 MCV 86.9 MCH 28.9 MCHC 33.3 RDW 13.1 Plt Count 233 MPV 7.0 L Absolute Neuts (auto) 7.1 Neutrophils % 73.2 D Lymphocytes % 18.9 D Monocytes % 7.4 Eosinophils % 0.3 D Basophils % 0.2 Nucleated RBC % 0 Sodium 139 Potassium 4.1 Chloride 106 Carbon Dioxide 28 Anion Gap 5 L BUN 8 Creatinine 1.0 Creat Clearance w eGFR > 60 Random Glucose 94 Calcium 8.7 Total Bilirubin 0.8 AST 21 ALT 31 Alkaline Phosphatase 59 Total Protein 6.5 Albumin 3.2 L HOSPITAL COURSE: Date of Admission:08/04/18 Date of Discharge: 08/05/18 Patient is a 32 year old male with history of obstructive sleep apnea presents with complaint of abdominal pain. MRCP showed cholecystitis without choledocholithiasis. Patient underwent laparoscopic cholecystectomy. Patient tolerated procedure well. Wounds clean, without erythema, bleeding or drainage. Tolerated clear liquids, urinated, and passed flatus. He was discharged with referral to Dr. Calix, and to Dr. Fields within one week after discharge. Instructed not to lift any heavy weights greater than 20 lbs. Discharged with instruction to take over the counter Ibuprofen and Tylenol for pain. Minutes to complete discharge: 35 Discharge Summary Reason For Visit: COMMON BILE DUCT CALCULUS Current Active Problems Cholecystitis (Acute) Cholelithiasis (Acute) Epigastric abdominal pain (Acute) S/P laparoscopic cholecystectomy (Acute) Condition: Stable - Instructions Diet, Activity, Other Instructions: You were admitted for abdominal pain, and were found to have stones within your gallbladder. you were treated for acute cholecystitis You were treated with antibiotics, and underwent surgery with Dr. Fields to remove the gallbladder. Continue taking your home medications as directed. It is important that you follow up with your primary care physician within one week of discharge. We have provided you with a referral to our [facility] with Dr. Calix, Dr. Patel. It is important that you follow up with general surgeon Dr. Fields within one week of discharge. Please see below his discharge instructions. Do not lift anything heavy (more than 20 pounds weight) for at least the next two weeks. For pain, you may take over the counter tylenol (do not go above 4g in a day), or Ibuprofen 400mg (Do not go above 1200g a day) every 6 hours with food and water as needed. Please return to the nearest Emergency Department if you experience any fevers, chills, chest pain, palpitations, worsening abdominal pain, bleeding or drainage from the surgical sites, nausea, vomiting, constipation. Dr. Fields Discharge Post-Operative Instructions Physical activity Resume your normal everyday activity as tolerated no heavy lifting or exercise until seen by your surgeon. You may walk unlimited amounts of and climb stairs. You may resume driving the car when you feel safe and comfortable behind the wheel. Wound care If you have a bandage, leave it on, and keep dry for 48 - 72 hours. After that time discard the outer bandage. If there are tapes on the skin under the outer bandage, leave them in place. They will peel off in the next 7 to 10 days. Do Not peel them off. You may shower 2 days after surgery. If there are tapes present on the skin, they can get wet. Diet There are no dietary restrictions. Eat healthy, high-fiber foods. Drink 6 to 8 glasses of liquid each day. This will assist in keeping your bowels are regular. Pain management You may take Tylenol or acetaminophen or Ibuprofen (for example, Motrin, Advil etc.) Any pain prescription medication ordered should be taken as prescribed for moderate to severe pain. Call Dr. Fields for any of the following: Severe pain not relieved by medication Fever of 101 or higher Excessive bleeding or drainage on dressing Inability to urinate If you experience any chest pain or shortness of breath seek emergency treatment immediately. Call the office at [phone] for a post operative appointment in 7 - 10 days. Referrals: Fortino Calix MD [Staff Physician] - 08/12/18 (Dr. Patel, Saturday morning 9am -12pm) Marcus Fields MD [Staff Physician] - 1 Week Disposition: HOME - Home Medications Comprehensive Discharge Medication List: Ambulatory Orders Famotidine [Pepcid -] 20 mg PO DAILY #30 tablet 08/02/18 Acetaminophen [Tylenol] 650 mg PO Q6H PRN #1 tablet 08/05/18 Fluticasone Prop 0.05% Nasal [Flonase -] 1 - 2 spray NS BID 08/05/18 Ibuprofen 400 mg PO Q8H PRN #15 tablet 08/05/18 This patient is new to me today: No Emergency Visit: Yes ED Registration Date: 08/04/18 Care time: The patient presented to the Emergency Department on the above date and was hospitalized for further evaluation of their emergent condition. Critical Care patient: No - Discharge Referral Referred to [facility] Med P.C.: No
--- NOTE | 2018-08-08 14:25 | PATH ---
Surgical Pathology Report Patient Name: KYLEE CHACKO [facility]. Rec. #: [id number] /Age/Gender: 1985 (Age: 32) / M Account: [id number] Location: [address] [place] [address]/[facility] Taken: 08/04/2018 Received: 08/04/2018 Reported: 08/05/2018 Physicians: MD Teresa Luz M.D. Specimen(s) Received GALLBLADDER Clinical History Common bile duct calculus Final Diagnosis GALLBLADDER, CHOLECYSTECTOMY: ACUTE AND CHRONIC CHOLECYSTITIS, CHOLESTEROLOSIS, CHOLELITHIASIS. ONE BENIGN REACTIVE LYMPH NODE. Electronically Signed Radha Rolle M.D. Gross Description Received in formalin, labeled "gallbladder," is a 6.8 x 3.0 x 2.0 cm. gallbladder with a 0.2 cm. in length portion of cystic duct attached. There is a 0.6 cm in greatest dimension possible periductal lymph node present. The outer surface is garcia-pink with focal defects and varies from smooth to shaggy. The lumen contains green, tenacious bile as well as abundant yellow, irregular to spherical choleliths ranging from 0.3-0.7 cm in greatest dimension. The mucosa is brown with gold cholesterol stippling. The wall of the gallbladder averages 0.1 cm. in thickness. Lpta sections are submitted in one cassette. /08/04/2018 saudi08/04/2018
== END 2018-08-05 15:49 | disposition home or self-care (01) | DRG 263 ==
LOC: JER 01:20 → JERBED 03:49 → J6S 15:34 → OBSVTOIN 08-04 13:14
PROVIDERS: ADMIT Internal Medicine; ATTEND Internal Medicine
PROC: 0FT44ZZ Resection of Gallbladder, Percutaneous Endoscopic Approach (ICD-10-PCS; principal; 2018-08-04 10:00)
DX: K80.00 Calculus of gallbladder with acute cholecystitis without obstruction (principal); G47.33 Obstructive sleep apnea (adult) (pediatric); E66.9 Obesity, unspecified; Z68.34 Body mass index [BMI] 34.0-34.9, adult
CPT/HCPCS: 36415; 71045-TC-FY; 74181-TC; 76705-TC; 80053; 80061; 82150; 83721; 83735; 84100; 85025; 85610; 86140; 87040; 88304-TC; 94660; 94760; 99281-25; G0378; J0131; J1644; J7030

== ENCOUNTER 2019-05-21 23:51 | Emergency (ER) | payer OTHER ==
[2019-05-22 00:03] VITALS: TEMP 98; BMI 33.4
--- NOTE | 2019-05-22 00:47 | PDOC ---
History of Present Illness - General Chief Complaint: Respiratory Stated Complaint: DIFF. BREATHING Time Seen by Provider: 05/22/19 00:47 - History of Present Illness Initial Comments: 05/22/19 01:18 Samuel Carvajal is a 33yM with PMHx deviated septum s/p surgery 05/19/19 presenting with dyspnea. DYspnea started yesterday after leaving hospital for post-op recovery. Has sinus tenderness bilaterally, nares blocked with green mucus and blood. Associated cold sweats, headache, nausea. Took saline sprays, 1g tylenol today w minimal relief. Cannot use CPAP during sleep bc it puts too much pressure on sinuses. Denies vomiting, chest pain, AB pain, urinary, bowel mvmt changes. Surgeon Dr. Luis Barrett at [facility] Past History - Past Medical History Allergies/Adverse Reactions: Allergies Allergy/AdvReac Type Severity Reaction Status Date / Time No Known Allergies Allergy Verified 05/21/19 23:59 Home Medications: Ambulatory Orders Famotidine [Pepcid -] 20 mg PO DAILY #30 tablet 08/02/18 Acetaminophen [Tylenol] 650 mg PO Q6H PRN #1 tablet 08/05/18 Fluticasone Prop 0.05% Nasal [Flonase -] 1 - 2 spray NS BID 08/05/18 Ibuprofen 400 mg PO Q8H PRN #15 tablet 08/05/18 Anemia: No Asthma: No Cancer: No Cardiac Disorders: No CVA: No COPD: No CHF: No Dementia: No Diabetes: No GI Disorders: No Disorders: No HTN: No Hypercholesterolemia: No Liver Disease: No Seizures: No Thyroid Disease: No - Surgical History Abdominal Surgery: No Appendectomy: No Cardiac Surgery: No Cholecystectomy: No Lung Surgery: No Neurologic Surgery: No - Suicide/Smoking/Psychosocial Hx Smoking History: Never smoked Have you smoked in the past 12 months: No Hx Alcohol Use: Yes (social) Drug/Substance Use Hx: No Substance Use Type: None Review of Systems - Review of Systems Constitutional: Yes: Fever, Night Sweats. No: Chills, Weakness HEENTM: Yes: Nose Pain, Nose Congestion, Nose Bleeding. No: Eye Pain, Recent change in vision, Ear Discharge, Throat Pain, Throat Swelling, Difficulty Swallowing, Mouth Swelling Respiratory: No: Cough, Shortness of Breath, Stridor, Wheezing, Productive cough Cardiac (ROS): No: Chest Pain, Palpitations, Syncope, Chest Tightness ABD/GI: Yes: Nausea. No: Abdominal Distended, Constipated, Diarrhea, Vomiting, Indigestion : No: Burning, Dysuria, Discharge, Frequency, Flank Pain, Hematuria, Incontinence Musculoskeletal: No: Back Pain, Joint Pain, Joint Swelling, Muscle Pain, Muscle Weakness Integumentary: No: Bruising, Change in Color, Flushing, Lesions, Lumps Neurological: Yes: Headache. No: Paresthesia, Seizure, Tingling, Tremors Psychiatric: No: Anxiety, Depression Endocrine: No: Excessive Sweating, Flushing, Intolerance to Cold, Intolerance to Heat Hematologic/Lymphatic: No: Anemia, Blood Clots, Easy Bleeding *Physical Exam - Vital Signs Last Vital Signs Temp Pulse Resp BP Pulse Ox 98 F 78 18 132/81 98 05/21/19 23:55 05/21/19 23:55 05/21/19 23:55 05/21/19 23:55 05/21/19 23:55 - Physical Exam General Appearance: Yes: Nourished, Appropriately Dressed, Mild Distress HEENT: positive: EOMI, DEMETRI, Normal Voice, Pharyngeal Erythema, Nasal Congestion (green mucus + blood), Rhinorrhea, Sinus Tenderness (bilateral), Hearing Grossly Normal. negative: TM Bulging, TM Dull, TM Erythema Neck: positive: Supple. negative: Tender, Rigid Respiratory/Chest: positive: Lungs Clear, Normal Breath Sounds. negative: Chest Tender, Respiratory Distress, Crackles, Rales, Rhonchi, Stridor, Wheezing Cardiovascular: positive: Regular Rhythm, Regular Rate, S1, S2. 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 negative: Confused, Disoriented Medical Decision Making - Medical Decision Making 05/22/19 01:17 Samuel Carvajal is a 33yM with PMHx deviated septum s/p surgery 05/19/19 presenting with dyspnea. Dyspnea d/t sinusitis (sinus tenderness, blocked nares on exam). Given sudafed, saline spray to relieve sinus mucus. Given zofran for nausea. D/c home to f/u with Dr. Barrett surgeon *DC/Admit/Observation/Transfer Diagnosis at time of Disposition: Sinusitis Qualifiers: Sinusitis location: unspecified location Chronicity: acute Recurrence: non- recurrent Qualified Code(s): J01.90 - Acute sinusitis, unspecified - Discharge Dispostion Disposition: HOME Condition at time of disposition: Improved Decision to Admit order: No - Referrals - Patient Instructions Printed Discharge Instructions: DI for Sinusitis Additional Instructions: You were seen for trouble breathing. It is likely due to sinusitis. You were given meds and breathing treatment to open up your sinuses. Please arrange an appointment with your surgeon Dr. Barrett within the next 1-2 days to evaluate your nose. Come back to the ED if you cannot breathe, bleed uncontrollably, or vomit. - Post Discharge Activity
--- NOTE | 2019-05-22 01:13 | PDOC ---
Attending Attestation - Resident Resident Name: YogeshJermaine - ED Attending Attestation I have performed the following: I have examined & evaluated the patient, The case was reviewed & discussed with the resident, I agree w/resident's findings & plan, Exceptions are as noted - HPI HPI: 05/22/19 04:20 33M s/p deviated septum surgery 05/19/19 here with SOB. States he is having difficulty breathing through his nose and it is interfering with his ability to sleep. - Physicial Exam PE: 05/22/19 04:22 Agree with exam as documented by resident - Medical Decision Making 05/22/19 04:22 No signs of post-op infection, complication saline neb, sudafed re-eval Pt much improved symptomatically dc home f/u with originating proceduralist
--- NOTE | 2019-05-22 01:13 | PDOC ---
*Physical Exam - Vital Signs Last Vital Signs Temp Pulse Resp BP Pulse Ox 98 F 78 18 132/81 98 05/21/19 23:55 05/21/19 23:55 05/21/19 23:55 05/21/19 23:55 05/21/19 23:55 Medical Decision Making - Medical Decision Making 05/22/19 01:12 33 year old male with PMHx of deviated septum repair (05/19/19) presenting w/ dyspnea and c/o difficulty sleeping because he can't use his CPAP machine post operatively because of needed setting adjustment. No chest pain, lightheadedness, palpitations, fevers/chills. Low clinical suspicion for post operative infection. Will withhold sedative sleep aids b/c of concern for respiratory depression and attempt symptomatic relief w/saline nebulizer. 05/22/19 03:47 S/p Saline Nebulizer patient sleeping comfortably VSS Patient has nebulizer machine @ home, will discharge home with return precautions, previously scheduled ENT follow-up. *DC/Admit/Observation/Transfer Diagnosis at time of Disposition: Sinusitis Qualifiers: Sinusitis location: unspecified location Chronicity: acute Recurrence: non- recurrent Qualified Code(s): J01.90 - Acute sinusitis, unspecified - Discharge Dispostion Disposition: HOME Condition at time of disposition: Improved - Referrals - Patient Instructions Printed Discharge Instructions: DI for Sinusitis Additional Instructions: You were seen for trouble breathing. It is likely due to sinusitis. You were given meds and breathing treatment to open up your sinuses. Please arrange an appointment with your surgeon Dr. Barrett within the next 1-2 days to evaluate your nose. Come back to the ED if you cannot breathe, bleed uncontrollably, or vomit. - Post Discharge Activity
[2019-05-22] MEDS ORDERED: SODIUM CHLORIDE FOR INHALATION 3 ML VIAL.NEB IH ONE (01:31)
[2019-05-22] MEDS ORDERED: ONDANSETRON *ODT* 4 MG TABLET SL ONE (01:39)
[2019-05-22] MEDS ORDERED: PSEUDOEPHEDRINE HCL 60 MG TABLET PO SCH (01:45)
[2019-05-22] MEDS ORDERED: PSEUDOEPHEDRINE HCL 60 MG TABLET ONE (01:48)
[2019-05-22] MEDS ORDERED: ONDANSETRON *ODT* 4 MG TABLET ONE (01:48)
[2019-05-22 04:24] VITALS: BP 124/78; PULSE 81
== END 2019-05-22 04:20 | disposition home or self-care (01) ==
LOC: JER 23:51
PROC: 3E0F7GC Introduction of Other Therapeutic Substance into Respiratory Tract, Via Natural or Artificial Opening (ICD-10-PCS; principal; 2019-05-21)
DX: J01.90 Acute sinusitis, unspecified (principal)
CPT/HCPCS: 99282-25; Q0162

== ENCOUNTER 2021-03-21 15:47 | Inpatient (IN) | payer OTHER ==
[2021-03-21] MEDS ORDERED: ACETAMINOPHEN 1000 MG/100 ML VIAL (NON FORMULARY) IVPB ONE (16:24)
[2021-03-21] MEDS ORDERED: SODIUM CHLORIDE 0.9% 500 ML INFUS.BAG IV ONE ×2 (16:24→18:13)
[2021-03-21] MEDS ORDERED: ACETAMINOPHEN INJECTION 100 ML IVPB ONE (16:54)
[2021-03-21] MEDS ORDERED: DEXAMETHASONE SOD PHOSPHATE 4 MG/1 ML VIAL IVPUSH ONE (17:15)
[2021-03-21 17:42] LABS: BASO % 0.2 % (0-2.0); HEMATOCRIT 45.9 % (35.4-49); HEMOGLOBIN 15.8 GM/dL (11.7-16.9); LYMPH % 16.9 % (8-40); MCHC 34.4 g/dl (32.0-35.9); MEAN CELL VOLUME 87.3 fl (80-96); MEAN PLT VOLUME 7.4 fl (7.5-11.1); MONO % 7.3 % (3.8-10.2); NEUT % 75.6 % (42.8-82.8); PLATELET COUNT 223 K/MM3 (134-434); RBC 5.26 M/mm3 (4.00-5.60); RDW 13.4 % (11.9-15.9); WHITE BLOOD COUNT 4.6 K/mm3 (4.0-10.0)
[2021-03-21 17:45] LABS: VENOUS PH 7.228 (7.310-7.410)
[2021-03-21] MEDS ORDERED: DEXAMETHASONE SOD PHOSPHATE 10 MG/1 ML VIAL ONE (17:45)
[2021-03-21 17:49] LABS: INR 1.15 (0.83-1.09); PROTHROMBIN TIME (PATIENT) 13.8 SEC (9.7-13.0)
[2021-03-21 17:51] LABS: ACTIVATED PTT 31.9 SECONDS (25.2-36.5)
[2021-03-21 18:03] LABS: CHLORIDE 100 mmol/L (98-107); SODIUM 134 mmol/L (136-145)
[2021-03-21 18:06] LABS: ALBUMIN 3.6 g/dl (3.4-5.0); ANION GAP 10 MMOL/L (8-16); BLOOD UREA NITROGEN 14.3 mg/dL (7-18); CALCIUM 8.1 mg/dL (8.5-10.1); CO2 24 mmol/L (21-32); GLUCOSE,RANDOM 105 mg/dL (74-106)
[2021-03-21 18:09] LABS: BILIRUBIN,DIRECT 0.2 mg/dL (0.0-0.2); CREATININE 1.1 mg/dL (0.55-1.3); SGOT/AST 46 U/L (15-37); SGPT/ALT 41 U/L (13-61)
[2021-03-21 18:10] LABS: LDH 546 U/L (87-246)
[2021-03-21 18:11] LABS: BILIRUBIN,TOTAL 0.5 mg/dL (0.2-1); TOT PROT 7.9 g/dl (6.4-8.2)
[2021-03-21 18:12] LABS: ALK PHOS 50 U/L (45-117)
[2021-03-21 21:00] LABS: EPI CELLS 24 /uL (0-25.1); HYALINE CASTS 5 /uL (0-3.1); URINE APPEARANCE CLEAR; URINE BACTERIA 27 /uL (0-1359); URINE BILIRUBIN NEGATIVE (NEGATIVE); URINE COLOR YELLOW; URINE GLUCOSE (UA) NEGATIVE (NEGATIVE); URINE KETONE NEGATIVE (NEGATIVE); URINE LEUK ESTERASE NEGATIVE (NEGATIVE); URINE NITRITE NEGATIVE (NEGATIVE); URINE PROTEIN 3+ (NEGATIVE); URINE RBC 14 /uL (0-23.9); URINE UROBILINOGEN 0.2 mg/dL (0.2-1.0); URINE WBC 6 /uL (0-25.8)
[2021-03-22 02:59] VITALS: BMI 36.5
[2021-03-22 08:48] LABS: HEMATOCRIT 44.7 % (35.4-49); HEMOGLOBIN 15.3 GM/dL (11.7-16.9); MCH 30.3 pg (25.7-33.7); MCHC 34.3 g/dl (32.0-35.9); MEAN CELL VOLUME 88.3 fl (80-96); MEAN PLT VOLUME 7.3 fl (7.5-11.1); PLATELET COUNT 212 K/MM3 (134-434); RBC 5.06 M/mm3 (4.00-5.60); RDW 13.6 % (11.9-15.9); WHITE BLOOD COUNT 4.3 K/mm3 (4.0-10.0)
[2021-03-22 09:14] LABS: BLOOD UREA NITROGEN 15.5 mg/dL (7-18); MAGNESIUM 2.8 mg/dL (1.8-2.4)
[2021-03-22 09:17] LABS: CREATININE 0.9 mg/dL (0.55-1.3)
[2021-03-22 09:18] LABS: PHOSPHOROUS 2.6 mg/dL (2.5-4.9)
[2021-03-22 09:19] LABS: BILIRUBIN,TOTAL 0.6 mg/dL (0.2-1); TOT PROT 7.3 g/dl (6.4-8.2)
[2021-03-22] MEDS ORDERED: ENOXAPARIN NA (PORCINE) 40 MG/0.4 ML DISP.SYRIN SQ SCH (10:00)
[2021-03-22] MEDS ORDERED: DEXAMETHASONE SOD PHOSPHATE 10 MG/1 ML VIAL IVPUSH SCH (10:00)
[2021-03-22] MEDS ORDERED: ZINC SULFATE 220 MG CAPSULE (FP) PO SCH (10:00)
[2021-03-22] MEDS ORDERED: CHOLECALCIFEROL (VIT D3) 1,000 UNIT (25 MCG) TABLET PO SCH (10:00)
[2021-03-22] MEDS ORDERED: ASCORBIC ACID 500 MG TABLET (FP) PO SCH (10:00)
[2021-03-22] MEDS ORDERED: FAMOTIDINE 20 MG TABLET PO SCH (10:00)
[2021-03-22] MEDS ORDERED: PT OWN MED DRAWER 7, Y5N ONE (10:48)
[2021-03-22] MEDS ORDERED: BUDESONIDE/FORMETEROL FUMARATE 160/4.5 mcg INHALER IH SCH (12:45)
[2021-03-22] MEDS ORDERED: REMDESIVIR 200 MG in SODIUM CHLORIDE 250 ML IVPB ONE (13:00)
[2021-03-22] MEDS ORDERED: ALBUTEROL SO4 HFA INHALER IH SCH (16:00)
[2021-03-22] MEDS: ALBUTEROL SO4 HFA INHALER IH SCH (20:59)
[2021-03-22] MEDS: ZINC SULFATE 220 MG CAPSULE (FP) PO SCH (21:58)
[2021-03-22] MEDS: BUDESONIDE/FORMETEROL FUMARATE 160/4.5 mcg INHALER IH SCH (21:58)
[2021-03-23 06:47] LABS: HEMATOCRIT 44.4 % (35.4-49); HEMOGLOBIN 15.1 GM/dL (11.7-16.9); MEAN CELL VOLUME 88.2 fl (80-96); PLATELET COUNT 293 K/MM3 (134-434); RBC 5.03 M/mm3 (4.00-5.60); RDW 13.3 % (11.9-15.9); WHITE BLOOD COUNT 9.6 K/mm3 (4.0-10.0)
[2021-03-23 07:14] LABS: BLOOD UREA NITROGEN 17.6 mg/dL (7-18); CALCIUM 7.7 mg/dL (8.5-10.1)
[2021-03-23 07:15] LABS: ALBUMIN 2.9 g/dl (3.4-5.0)
[2021-03-23 07:18] LABS: CREATININE 0.9 mg/dL (0.55-1.3)
[2021-03-23 07:19] LABS: BILIRUBIN,TOTAL 0.6 mg/dL (0.2-1); TOT PROT 6.9 g/dl (6.4-8.2)
[2021-03-23] MEDS: ALBUTEROL SO4 HFA INHALER IH SCH ×4 (09:24→20:45)
[2021-03-23] MEDS: DEXAMETHASONE SOD PHOSPHATE 10 MG/1 ML VIAL IVPUSH SCH (09:24)
[2021-03-23] MEDS: ENOXAPARIN NA (PORCINE) 40 MG/0.4 ML DISP.SYRIN SQ SCH (09:24)
[2021-03-23] MEDS: CHOLECALCIFEROL (VIT D3) 1,000 UNIT (25 MCG) TABLET PO SCH (09:25)
[2021-03-23] MEDS: ZINC SULFATE 220 MG CAPSULE (FP) PO SCH ×2 (09:25→22:22)
[2021-03-23] MEDS: BUDESONIDE/FORMETEROL FUMARATE 160/4.5 mcg INHALER IH SCH ×2 (09:26→22:22)
[2021-03-23] MEDS: ASCORBIC ACID 500 MG TABLET (FP) PO SCH (09:26)
[2021-03-23] MEDS: FAMOTIDINE 20 MG TABLET PO SCH (09:26)
[2021-03-23] MEDS ORDERED: REMDESIVIR 100 MG in SODIUM CHLORIDE 250 ML IVPB SCH (13:00)
[2021-03-23] MEDS ORDERED: PT OWN MED DRAWER 7, Y5N ONE (13:45)
[2021-03-23] MEDS: REMDESIVIR 100 MG in SODIUM CHLORIDE 250 ML IVPB SCH (14:57)
[2021-03-24] MEDS ORDERED: ACETAMINOPHEN 325 MG TABLET (FP) PO PRN (07:36)
[2021-03-24] MEDS: ALBUTEROL SO4 HFA INHALER IH SCH ×4 (08:06→19:55)
[2021-03-24 09:27] LABS: HEMATOCRIT 43.9 % (35.4-49); MCH 30.2 pg (25.7-33.7); MCHC 34.1 g/dl (32.0-35.9); MEAN CELL VOLUME 88.4 fl (80-96); MEAN PLT VOLUME 6.4 fl (7.5-11.1); PLATELET COUNT 359 K/MM3 (134-434); RBC 4.96 M/mm3 (4.00-5.60); RDW 13.5 % (11.9-15.9); WHITE BLOOD COUNT 8.7 K/mm3 (4.0-10.0)
[2021-03-24 09:58] LABS: BLOOD UREA NITROGEN 16.1 mg/dL (7-18)
[2021-03-24 10:00] LABS: CALCIUM 7.7 mg/dL (8.5-10.1)
[2021-03-24 10:02] LABS: CREATININE 0.9 mg/dL (0.55-1.3)
[2021-03-24 10:03] LABS: BILIRUBIN,TOTAL 0.7 mg/dL (0.2-1)
[2021-03-24 10:04] LABS: TOT PROT 7.1 g/dl (6.4-8.2)
[2021-03-24] MEDS: BUDESONIDE/FORMETEROL FUMARATE 160/4.5 mcg INHALER IH SCH ×2 (10:25→21:11)
[2021-03-24] MEDS: CHOLECALCIFEROL (VIT D3) 1,000 UNIT (25 MCG) TABLET PO SCH (10:25)
[2021-03-24] MEDS: DEXAMETHASONE SOD PHOSPHATE 10 MG/1 ML VIAL IVPUSH SCH (10:25)
[2021-03-24] MEDS: ZINC SULFATE 220 MG CAPSULE (FP) PO SCH ×2 (10:25→21:10)
[2021-03-24] MEDS: FAMOTIDINE 20 MG TABLET PO SCH (10:25)
[2021-03-24] MEDS: ASCORBIC ACID 500 MG TABLET (FP) PO SCH (10:25)
[2021-03-24] MEDS: ENOXAPARIN NA (PORCINE) 40 MG/0.4 ML DISP.SYRIN SQ SCH (10:26)
[2021-03-24] MEDS: REMDESIVIR 100 MG in SODIUM CHLORIDE 250 ML IVPB SCH (13:15)
[2021-03-24] MEDS ORDERED: TOCILIZUMAB (ACTEMRA) 200 MG/10 ML VIAL IVPB ONE (13:45)
[2021-03-24] MEDS ORDERED: TOCILIZUMAB 800 MG in SODIUM CHLORIDE 60 ML IVPB ONE (16:00)
[2021-03-25 07:31] LABS: HEMATOCRIT 43.3 % (35.4-49); HEMOGLOBIN 15.1 GM/dL (11.7-16.9); MCH 30.7 pg (25.7-33.7); MEAN CELL VOLUME 87.8 fl (80-96); MEAN PLT VOLUME 6.6 fl (7.5-11.1); PLATELET COUNT 407 K/MM3 (134-434); RBC 4.93 M/mm3 (4.00-5.60); RDW 13.2 % (11.9-15.9); WHITE BLOOD COUNT 6.3 K/mm3 (4.0-10.0)
[2021-03-25 07:59] LABS: CALCIUM 7.6 mg/dL (8.5-10.1)
[2021-03-25 08:00] LABS: ALBUMIN 2.9 g/dl (3.4-5.0)
[2021-03-25 08:03] LABS: CREATININE 0.9 mg/dL (0.55-1.3)
[2021-03-25 08:05] LABS: BILIRUBIN,TOTAL 0.8 mg/dL (0.2-1); TOT PROT 7.1 g/dl (6.4-8.2)
[2021-03-25] MEDS: ALBUTEROL SO4 HFA INHALER IH SCH ×4 (08:30→21:10)
[2021-03-25] MEDS: ENOXAPARIN NA (PORCINE) 40 MG/0.4 ML DISP.SYRIN SQ SCH ×2 (09:38→21:32)
[2021-03-25] MEDS: ZINC SULFATE 220 MG CAPSULE (FP) PO SCH ×2 (09:39→21:32)
[2021-03-25] MEDS: DEXAMETHASONE SOD PHOSPHATE 10 MG/1 ML VIAL IVPUSH SCH (09:39)
[2021-03-25] MEDS: FAMOTIDINE 20 MG TABLET PO SCH (09:39)
[2021-03-25] MEDS: ASCORBIC ACID 500 MG TABLET (FP) PO SCH (09:39)
[2021-03-25] MEDS: CHOLECALCIFEROL (VIT D3) 1,000 UNIT (25 MCG) TABLET PO SCH (09:39)
[2021-03-25] MEDS: BUDESONIDE/FORMETEROL FUMARATE 160/4.5 mcg INHALER IH SCH ×2 (09:48→21:32)
[2021-03-25 13:39] LABS: ERYTHROCYTE SEDIMENTATION RATE 80 mm/hr (0-10)
[2021-03-25] MEDS: REMDESIVIR 100 MG in SODIUM CHLORIDE 250 ML IVPB SCH (14:01)
[2021-03-26] MEDS ORDERED: MELATONIN 5 MG TABLETS PO ONE (00:11)
[2021-03-26] MEDS: MORPHINE SULFATE 2 MG/ML VIAL IVPUSH ONE ×2 (00:22→00:38)
[2021-03-26] MEDS ORDERED: guaiFENesin 200 MG/10 ML 10 ML UNIT-DOSE CUPS PO ONE (05:40)
[2021-03-26 07:05] LABS: BASO % 0.1 % (0-2.0); EOS % 0.5 % (0-4.5); HEMOGLOBIN 15.6 GM/dL (11.7-16.9); LYMPH % 15.4 % (8-40); MCH 31.1 pg (25.7-33.7); MCHC 35.5 g/dl (32.0-35.9); MEAN CELL VOLUME 87.5 fl (80-96); MEAN PLT VOLUME 6.8 fl (7.5-11.1); MONO % 5.9 % (3.8-10.2); NEUT % 78.1 % (42.8-82.8); PLATELET COUNT 464 K/MM3 (134-434); RBC 5.03 M/mm3 (4.00-5.60); RDW 13.4 % (11.9-15.9); WHITE BLOOD COUNT 6.6 K/mm3 (4.0-10.0)
[2021-03-26 07:24] LABS: ALBUMIN 2.9 g/dl (3.4-5.0); CALCIUM 8.1 mg/dL (8.5-10.1)
[2021-03-26 07:25] LABS: MAGNESIUM 2.4 mg/dL (1.8-2.4)
[2021-03-26 07:28] LABS: CREATININE 0.9 mg/dL (0.55-1.3); PHOSPHOROUS 4.4 mg/dL (2.5-4.9)
[2021-03-26 07:29] LABS: BILIRUBIN,TOTAL 0.7 mg/dL (0.2-1)
[2021-03-26] MEDS: ALBUTEROL SO4 HFA INHALER IH SCH ×4 (08:15→22:12)
[2021-03-26 09:19] LABS: ANISOCYTOSIS 0; MACROCYTOSIS 0; PLATELET ESTIMATE NORMAL
[2021-03-26] MEDS: DEXAMETHASONE SOD PHOSPHATE 10 MG/1 ML VIAL IVPUSH SCH (09:33)
[2021-03-26] MEDS: ZINC SULFATE 220 MG CAPSULE (FP) PO SCH ×2 (09:33→22:11)
[2021-03-26] MEDS: ASCORBIC ACID 500 MG TABLET (FP) PO SCH (09:33)
[2021-03-26] MEDS: CHOLECALCIFEROL (VIT D3) 1,000 UNIT (25 MCG) TABLET PO SCH (09:33)
[2021-03-26] MEDS: FAMOTIDINE 20 MG TABLET PO SCH (09:33)
[2021-03-26] MEDS: BUDESONIDE/FORMETEROL FUMARATE 160/4.5 mcg INHALER IH SCH ×2 (09:36→22:12)
[2021-03-26] MEDS: ENOXAPARIN NA (PORCINE) 40 MG/0.4 ML DISP.SYRIN SQ SCH ×2 (09:36→22:11)
[2021-03-26] MEDS: REMDESIVIR 100 MG in SODIUM CHLORIDE 250 ML IVPB SCH (13:13)
[2021-03-26] MEDS: guaiFENesin/D-M SUGAR-FREE/ACLHOL-FREE 118 ML BOTTLE PO PRN (22:12)
[2021-03-26] MEDS ORDERED: PT OWN MED DRAWER 7, Y5N ONE (22:21)
[2021-03-26] MEDS: MELATONIN 5 MG TABLETS PO PRN (23:13)
[2021-03-27] MEDS: ALBUTEROL SO4 HFA INHALER IH SCH ×4 (08:00→20:42)
[2021-03-27 09:00] LABS: BASO % 0.1 % (0-2.0); EOS % 1.6 % (0-4.5); HEMATOCRIT 47.3 % (35.4-49); HEMOGLOBIN 16.5 GM/dL (11.7-16.9); LYMPH % 12.1 % (8-40); MCH 30.6 pg (25.7-33.7); MCHC 34.8 g/dl (32.0-35.9); MEAN CELL VOLUME 88.1 fl (80-96); MEAN PLT VOLUME 6.8 fl (7.5-11.1); MONO % 4.9 % (3.8-10.2); NEUT % 81.3 % (42.8-82.8); PLATELET COUNT 505 K/MM3 (134-434); RBC 5.37 M/mm3 (4.00-5.60); RDW 13.3 % (11.9-15.9)
[2021-03-27 09:42] LABS: BILIRUBIN,TOTAL 0.7 mg/dL (0.2-1)
[2021-03-27] MEDS: ENOXAPARIN NA (PORCINE) 40 MG/0.4 ML DISP.SYRIN SQ SCH ×2 (09:47→22:12)
[2021-03-27] MEDS: ZINC SULFATE 220 MG CAPSULE (FP) PO SCH ×2 (09:47→22:12)
[2021-03-27] MEDS: ASCORBIC ACID 500 MG TABLET (FP) PO SCH (09:47)
[2021-03-27] MEDS: FAMOTIDINE 20 MG TABLET PO SCH (09:47)
[2021-03-27] MEDS: guaiFENesin/D-M SUGAR-FREE/ACLHOL-FREE 118 ML BOTTLE PO PRN ×2 (09:48→22:12)
[2021-03-27] MEDS: DEXAMETHASONE SOD PHOSPHATE 10 MG/1 ML VIAL IVPUSH SCH (09:48)
[2021-03-27 09:49] LABS: BLOOD UREA NITROGEN 21.3 mg/dL (7-18)
[2021-03-27] MEDS: BUDESONIDE/FORMETEROL FUMARATE 160/4.5 mcg INHALER IH SCH ×2 (09:52→22:12)
[2021-03-27] MEDS: CHOLECALCIFEROL (VIT D3) 1,000 UNIT (25 MCG) TABLET PO SCH (09:52)
[2021-03-27 09:55] LABS: ALBUMIN 3.1 g/dl (3.4-5.0)
[2021-03-27 09:58] LABS: CALCIUM 8.4 mg/dL (8.5-10.1)
[2021-03-27] MEDS ORDERED: PT OWN MED DRAWER 7, Y5N ONE (22:07)
[2021-03-27] MEDS: MELATONIN 5 MG TABLETS PO PRN (22:12)
[2021-03-28 07:37] LABS: BASO % 0.3 % (0-2.0); HEMATOCRIT 47.2 % (35.4-49); HEMOGLOBIN 16.5 GM/dL (11.7-16.9); LYMPH % 12.4 % (8-40); MCH 30.6 pg (25.7-33.7); MCHC 35.1 g/dl (32.0-35.9); MEAN CELL VOLUME 87.2 fl (80-96); MONO % 3.4 % (3.8-10.2); NEUT % 81.9 % (42.8-82.8); PLATELET COUNT 533 K/MM3 (134-434); RBC 5.41 M/mm3 (4.00-5.60); RDW 13.1 % (11.9-15.9); WHITE BLOOD COUNT 9.2 K/mm3 (4.0-10.0)
[2021-03-28 08:01] LABS: BLOOD UREA NITROGEN 21.3 mg/dL (7-18); CALCIUM 8.4 mg/dL (8.5-10.1); MAGNESIUM 2.5 mg/dL (1.8-2.4)
[2021-03-28 08:04] LABS: PHOSPHOROUS 3.6 mg/dL (2.5-4.9)
[2021-03-28 08:05] LABS: CREATININE 0.8 mg/dL (0.55-1.3)
[2021-03-28 08:06] LABS: BILIRUBIN,TOTAL 0.6 mg/dL (0.2-1); TOT PROT 6.8 g/dl (6.4-8.2)
[2021-03-28] MEDS: FAMOTIDINE 20 MG TABLET PO SCH (10:30)
[2021-03-28] MEDS: CHOLECALCIFEROL (VIT D3) 1,000 UNIT (25 MCG) TABLET PO SCH (10:30)
[2021-03-28] MEDS: ASCORBIC ACID 500 MG TABLET (FP) PO SCH (10:30)
[2021-03-28] MEDS: ENOXAPARIN NA (PORCINE) 40 MG/0.4 ML DISP.SYRIN SQ SCH ×2 (10:30→22:05)
[2021-03-28] MEDS: ALBUTEROL SO4 HFA INHALER IH SCH ×4 (10:30→21:27)
[2021-03-28] MEDS: DEXAMETHASONE SOD PHOSPHATE 10 MG/1 ML VIAL IVPUSH SCH (10:30)
[2021-03-28] MEDS: ZINC SULFATE 220 MG CAPSULE (FP) PO SCH ×2 (10:31→22:05)
[2021-03-28] MEDS: BUDESONIDE/FORMETEROL FUMARATE 160/4.5 mcg INHALER IH SCH ×2 (10:31→22:05)
[2021-03-28] MEDS: FLUTICASONE PROP 0.05% 16 GM NASAL SPRAY NS PRN (15:51)
[2021-03-28] MEDS ORDERED: PT OWN MED DRAWER 7, Y5N ONE (22:04)
[2021-03-28] MEDS: guaiFENesin/D-M SUGAR-FREE/ACLHOL-FREE 118 ML BOTTLE PO PRN (22:05)
[2021-03-29] MEDS: MELATONIN 5 MG TABLETS PO PRN ×2 (00:43→21:37)
[2021-03-29 07:34] LABS: BASO % 0.4 % (0-2.0); EOS % 1.5 % (0-4.5); HEMATOCRIT 48.9 % (35.4-49); HEMOGLOBIN 17.1 GM/dL (11.7-16.9); LYMPH % 9.8 % (8-40); MCH 30.7 pg (25.7-33.7); MEAN CELL VOLUME 87.8 fl (80-96); MEAN PLT VOLUME 6.9 fl (7.5-11.1); MONO % 4.4 % (3.8-10.2); NEUT % 83.9 % (42.8-82.8); PLATELET COUNT 513 K/MM3 (134-434); RBC 5.58 M/mm3 (4.00-5.60); RDW 13.7 % (11.9-15.9); WHITE BLOOD COUNT 11.9 K/mm3 (4.0-10.0)
[2021-03-29 07:56] LABS: CALCIUM 8.6 mg/dL (8.5-10.1)
[2021-03-29 07:57] LABS: BLOOD UREA NITROGEN 19.6 mg/dL (7-18); MAGNESIUM 2.4 mg/dL (1.8-2.4)
[2021-03-29 08:00] LABS: PHOSPHOROUS 3.4 mg/dL (2.5-4.9)
[2021-03-29 08:01] LABS: BILIRUBIN,TOTAL 0.7 mg/dL (0.2-1)
[2021-03-29 08:02] LABS: TOT PROT 6.7 g/dl (6.4-8.2)
[2021-03-29 08:33] LABS: CREATININE 0.9 mg/dL (0.55-1.3)
[2021-03-29] MEDS ORDERED: PT OWN MED DRAWER 7, Y5N ONE (09:03)
[2021-03-29] MEDS: ALBUTEROL SO4 HFA INHALER IH SCH ×2 (09:49→13:40)
[2021-03-29] MEDS: guaiFENesin/D-M SUGAR-FREE/ACLHOL-FREE 118 ML BOTTLE PO PRN (09:50)
[2021-03-29] MEDS: ASCORBIC ACID 500 MG TABLET (FP) PO SCH (09:50)
[2021-03-29] MEDS: FAMOTIDINE 20 MG TABLET PO SCH (09:50)
[2021-03-29] MEDS: ZINC SULFATE 220 MG CAPSULE (FP) PO SCH ×2 (09:50→21:27)
[2021-03-29] MEDS: ENOXAPARIN NA (PORCINE) 40 MG/0.4 ML DISP.SYRIN SQ SCH ×2 (09:51→21:27)
[2021-03-29] MEDS: CHOLECALCIFEROL (VIT D3) 1,000 UNIT (25 MCG) TABLET PO SCH (09:51)
[2021-03-29] MEDS: DEXAMETHASONE SOD PHOSPHATE 10 MG/1 ML VIAL IVPUSH SCH (09:51)
[2021-03-29] MEDS: BUDESONIDE/FORMETEROL FUMARATE 160/4.5 mcg INHALER IH SCH (09:52)
[2021-03-29 10:38] LABS: ANISOCYTOSIS 0; MACROCYTOSIS 0; PLATELET ESTIMATE INCREASED
[2021-03-29] MEDS: BUDESONIDE 0.5 MG/2 ML INH SUSP VIAL NEB SCH (19:29)
[2021-03-29] MEDS: ALBUTEROL SO4 2.5/IPRATROPIUM 0.5 INH SOL 3 ML VIAL.NEB. NEB PRN (19:29)
[2021-03-30] MEDS: ALBUTEROL SO4 HFA INHALER IH SCH (02:01)
[2021-03-30 07:16] LABS: BASO % 0.5 % (0-2.0); EOS % 1.1 % (0-4.5); HEMATOCRIT 47.9 % (35.4-49); HEMOGLOBIN 16.8 GM/dL (11.7-16.9); LYMPH % 9.1 % (8-40); MCH 30.9 pg (25.7-33.7); MEAN CELL VOLUME 88.4 fl (80-96); MEAN PLT VOLUME 7.3 fl (7.5-11.1); MONO % 4.8 % (3.8-10.2); NEUT % 84.5 % (42.8-82.8); PLATELET COUNT 436 K/MM3 (134-434); RBC 5.42 M/mm3 (4.00-5.60); RDW 13.6 % (11.9-15.9)
[2021-03-30 07:34] LABS: CHLORIDE 106 mmol/L (98-107); SODIUM 138 mmol/L (136-145)
[2021-03-30 07:41] LABS: CALCIUM 8.6 mg/dL (8.5-10.1)
[2021-03-30 07:42] LABS: ALBUMIN 3.1 g/dl (3.4-5.0); ANION GAP 9 MMOL/L (8-16); BLOOD UREA NITROGEN 19.2 mg/dL (7-18); CO2 23 mmol/L (21-32); GLUCOSE,RANDOM 87 mg/dL (74-106); MAGNESIUM 2.4 mg/dL (1.8-2.4)
[2021-03-30 07:44] LABS: PHOSPHOROUS 3.6 mg/dL (2.5-4.9)
[2021-03-30 07:45] LABS: CREATININE 0.8 mg/dL (0.55-1.3); SGOT/AST 84 U/L (15-37); SGPT/ALT 227 U/L (13-61)
[2021-03-30 07:46] LABS: BILIRUBIN,TOTAL 0.7 mg/dL (0.2-1); LDH 496 U/L (87-246); TOT PROT 6.6 g/dl (6.4-8.2)
[2021-03-30 07:47] LABS: ALK PHOS 74 U/L (45-117)
[2021-03-30] MEDS: BUDESONIDE 0.5 MG/2 ML INH SUSP VIAL NEB SCH ×2 (08:04→20:32)
[2021-03-30] MEDS: FAMOTIDINE 20 MG TABLET PO SCH (09:36)
[2021-03-30] MEDS: CHOLECALCIFEROL (VIT D3) 1,000 UNIT (25 MCG) TABLET PO SCH (09:36)
[2021-03-30] MEDS: ASCORBIC ACID 500 MG TABLET (FP) PO SCH (09:36)
[2021-03-30] MEDS: DEXAMETHASONE SOD PHOSPHATE 10 MG/1 ML VIAL IVPUSH SCH (09:36)
[2021-03-30] MEDS: ENOXAPARIN NA (PORCINE) 40 MG/0.4 ML DISP.SYRIN SQ SCH ×2 (09:36→22:40)
[2021-03-30] MEDS: ZINC SULFATE 220 MG CAPSULE (FP) PO SCH ×2 (09:36→22:42)
[2021-03-30] MEDS: ALBUTEROL SO4 2.5/IPRATROPIUM 0.5 INH SOL 3 ML VIAL.NEB. NEB PRN (11:19)
[2021-03-30] MEDS ORDERED: PT OWN MED DRAWER 7, Y5N ONE (21:46)
[2021-03-30] MEDS: guaiFENesin/D-M SUGAR-FREE/ACLHOL-FREE 118 ML BOTTLE PO PRN (22:42)
[2021-03-30] MEDS: MELATONIN 5 MG TABLETS PO PRN (22:42)
[2021-03-31 06:57] LABS: BASO % 0.2 % (0-2.0); HEMATOCRIT 47.8 % (35.4-49); HEMOGLOBIN 16.3 GM/dL (11.7-16.9); LYMPH % 10.9 % (8-40); MCH 30.2 pg (25.7-33.7); MEAN CELL VOLUME 88.7 fl (80-96); MONO % 6.1 % (3.8-10.2); NEUT % 81.8 % (42.8-82.8); PLATELET COUNT 383 K/MM3 (134-434); RBC 5.39 M/mm3 (4.00-5.60); RDW 13.4 % (11.9-15.9); WHITE BLOOD COUNT 12.5 K/mm3 (4.0-10.0)
[2021-03-31 07:26] LABS: CHLORIDE 106 mmol/L (98-107); SODIUM 137 mmol/L (136-145)
[2021-03-31 07:35] LABS: ANION GAP 9 MMOL/L (8-16); BLOOD UREA NITROGEN 20.8 mg/dL (7-18); CALCIUM 8.3 mg/dL (8.5-10.1); CO2 22 mmol/L (21-32); GLUCOSE,RANDOM 91 mg/dL (74-106); MAGNESIUM 2.3 mg/dL (1.8-2.4)
[2021-03-31 07:37] LABS: SGPT/ALT 192 U/L (13-61)
[2021-03-31 07:38] LABS: CREATININE 0.9 mg/dL (0.55-1.3); SGOT/AST 54 U/L (15-37)
[2021-03-31 07:39] LABS: LDH 412 U/L (87-246); PHOSPHOROUS 2.8 mg/dL (2.5-4.9)
[2021-03-31 07:40] LABS: BILIRUBIN,TOTAL 0.6 mg/dL (0.2-1); TOT PROT 6.2 g/dl (6.4-8.2)
[2021-03-31 07:41] LABS: ALK PHOS 84 U/L (45-117)
[2021-03-31] MEDS: ALBUTEROL SO4 2.5/IPRATROPIUM 0.5 INH SOL 3 ML VIAL.NEB. NEB PRN ×3 (08:05→19:13)
[2021-03-31] MEDS: BUDESONIDE 0.5 MG/2 ML INH SUSP VIAL NEB SCH ×2 (08:05→19:13)
[2021-03-31] MEDS: ZINC SULFATE 220 MG CAPSULE (FP) PO SCH ×2 (09:36→21:22)
[2021-03-31] MEDS: FAMOTIDINE 20 MG TABLET PO SCH (09:36)
[2021-03-31] MEDS: DEXAMETHASONE SOD PHOSPHATE 10 MG/1 ML VIAL IVPUSH SCH (09:36)
[2021-03-31] MEDS: ENOXAPARIN NA (PORCINE) 40 MG/0.4 ML DISP.SYRIN SQ SCH ×2 (09:36→21:24)
[2021-03-31] MEDS: CHOLECALCIFEROL (VIT D3) 1,000 UNIT (25 MCG) TABLET PO SCH (09:36)
[2021-03-31] MEDS: ASCORBIC ACID 500 MG TABLET (FP) PO SCH (09:36)
[2021-03-31] MEDS ORDERED: PT OWN MED DRAWER 7, Y5N ONE ×2 (09:41→21:00)
[2021-03-31] MEDS: guaiFENesin/D-M SUGAR-FREE/ACLHOL-FREE 118 ML BOTTLE PO PRN ×2 (09:42→21:24)
[2021-03-31 10:03] LABS: ANISOCYTOSIS 1+; MACROCYTOSIS 0; PLATELET ESTIMATE NORMAL; TEAR DROP CELLS 1+
[2021-04-01 06:43] LABS: BASO % 0.3 % (0-2.0); EOS % 0.3 % (0-4.5); HEMATOCRIT 43.6 % (35.4-49); HEMOGLOBIN 14.7 GM/dL (11.7-16.9); LYMPH % 11.3 % (8-40); MCH 29.9 pg (25.7-33.7); MCHC 33.7 g/dl (32.0-35.9); MEAN CELL VOLUME 88.6 fl (80-96); MEAN PLT VOLUME 7.2 fl (7.5-11.1); MONO % 6.2 % (3.8-10.2); NEUT % 81.9 % (42.8-82.8); PLATELET COUNT 351 K/MM3 (134-434); RBC 4.91 M/mm3 (4.00-5.60); RDW 13.1 % (11.9-15.9); WHITE BLOOD COUNT 12.7 K/mm3 (4.0-10.0)
[2021-04-01 06:59] LABS: CHLORIDE 109 mmol/L (98-107); SODIUM 139 mmol/L (136-145)
[2021-04-01 07:01] LABS: ALBUMIN 2.7 g/dl (3.4-5.0); ANION GAP 8 MMOL/L (8-16); BLOOD UREA NITROGEN 18.1 mg/dL (7-18); CALCIUM 7.6 mg/dL (8.5-10.1); CO2 22 mmol/L (21-32); GLUCOSE,RANDOM 128 mg/dL (74-106); MAGNESIUM 2.3 mg/dL (1.8-2.4)
[2021-04-01 07:04] LABS: CREATININE 0.7 mg/dL (0.55-1.3); PHOSPHOROUS 3.2 mg/dL (2.5-4.9); SGOT/AST 29 U/L (15-37); SGPT/ALT 139 U/L (13-61)
[2021-04-01 07:06] LABS: BILIRUBIN,TOTAL 0.4 mg/dL (0.2-1); TOT PROT 5.6 g/dl (6.4-8.2)
[2021-04-01 07:07] LABS: ALK PHOS 80 U/L (45-117)
[2021-04-01] MEDS: BUDESONIDE 0.5 MG/2 ML INH SUSP VIAL NEB SCH ×2 (08:30→21:10)
[2021-04-01 08:34] LABS: ANISOCYTOSIS 1+; MACROCYTOSIS 0; PLATELET ESTIMATE NORMAL
[2021-04-01] MEDS: CHOLECALCIFEROL (VIT D3) 1,000 UNIT (25 MCG) TABLET PO SCH (09:46)
[2021-04-01] MEDS: DEXAMETHASONE SOD PHOSPHATE 10 MG/1 ML VIAL IVPUSH SCH (09:47)
[2021-04-01] MEDS: ASCORBIC ACID 500 MG TABLET (FP) PO SCH (09:47)
[2021-04-01] MEDS: ENOXAPARIN NA (PORCINE) 40 MG/0.4 ML DISP.SYRIN SQ SCH ×2 (09:47→21:38)
[2021-04-01] MEDS: POTASSIUM CHLORIDE TABS 20 MEQ TABLET.ER (FP) PO SCH (09:47)
[2021-04-01] MEDS: FAMOTIDINE 20 MG TABLET PO SCH (09:47)
[2021-04-01] MEDS: ZINC SULFATE 220 MG CAPSULE (FP) PO SCH ×2 (09:47→21:39)
[2021-04-01] MEDS: FLUTICASONE PROP 0.05% 16 GM NASAL SPRAY NS PRN (10:07)
[2021-04-01] MEDS: ALBUTEROL SO4 2.5/IPRATROPIUM 0.5 INH SOL 3 ML VIAL.NEB. NEB PRN ×2 (13:44→21:11)
[2021-04-01] MEDS: guaiFENesin/D-M SUGAR-FREE/ACLHOL-FREE 118 ML BOTTLE PO PRN (21:40)
[2021-04-02] MEDS ORDERED: POTASSIUM CHLORIDE TABS 10 MEQ TABLET.ER (FP) PO ONE (07:53)
[2021-04-02] MEDS: ALBUTEROL SO4 2.5/IPRATROPIUM 0.5 INH SOL 3 ML VIAL.NEB. NEB PRN ×2 (08:10→20:28)
[2021-04-02] MEDS: BUDESONIDE 0.5 MG/2 ML INH SUSP VIAL NEB SCH ×2 (08:10→20:28)
[2021-04-02] MEDS ORDERED: PT OWN MED DRAWER 7, Y5N ONE ×2 (10:24→18:43)
[2021-04-02] MEDS: ZINC SULFATE 220 MG CAPSULE (FP) PO SCH ×2 (10:46→21:17)
[2021-04-02] MEDS: ASCORBIC ACID 500 MG TABLET (FP) PO SCH (10:46)
[2021-04-02] MEDS: POTASSIUM CHLORIDE TABS 20 MEQ TABLET.ER (FP) PO SCH (10:46)
[2021-04-02] MEDS: FAMOTIDINE 20 MG TABLET PO SCH (10:46)
[2021-04-02] MEDS: ENOXAPARIN NA (PORCINE) 40 MG/0.4 ML DISP.SYRIN SQ SCH ×2 (10:46→21:17)
[2021-04-02] MEDS: DEXAMETHASONE SOD PHOSPHATE 10 MG/1 ML VIAL IVPUSH SCH (10:46)
[2021-04-02] MEDS: CHOLECALCIFEROL (VIT D3) 1,000 UNIT (25 MCG) TABLET PO SCH (10:46)
[2021-04-03] MEDS: BUDESONIDE 0.5 MG/2 ML INH SUSP VIAL NEB SCH ×2 (07:57→20:55)
[2021-04-03 09:06] LABS: BASO % 0.5 % (0-2.0); EOS % 0.7 % (0-4.5); HEMATOCRIT 43.7 % (35.4-49); HEMOGLOBIN 14.9 GM/dL (11.7-16.9); LYMPH % 12.4 % (8-40); MCH 30.4 pg (25.7-33.7); MCHC 34.1 g/dl (32.0-35.9); MEAN CELL VOLUME 89.1 fl (80-96); MONO % 5.4 % (3.8-10.2); PLATELET COUNT 296 K/MM3 (134-434); RDW 13.7 % (11.9-15.9); WHITE BLOOD COUNT 14.2 K/mm3 (4.0-10.0)
[2021-04-03 09:25] LABS: BLOOD UREA NITROGEN 17.9 mg/dL (7-18)
[2021-04-03 09:26] LABS: ALBUMIN 2.8 g/dl (3.4-5.0); CALCIUM 8.3 mg/dL (8.5-10.1); MAGNESIUM 2.4 mg/dL (1.8-2.4)
[2021-04-03 09:29] LABS: CREATININE 0.9 mg/dL (0.55-1.3)
[2021-04-03 09:30] LABS: PHOSPHOROUS 4.1 mg/dL (2.5-4.9)
[2021-04-03 09:31] LABS: BILIRUBIN,TOTAL 0.7 mg/dL (0.2-1)
[2021-04-03] MEDS: DEXAMETHASONE SOD PHOSPHATE 10 MG/1 ML VIAL IVPUSH SCH (09:48)
[2021-04-03] MEDS: CHOLECALCIFEROL (VIT D3) 1,000 UNIT (25 MCG) TABLET PO SCH (09:48)
[2021-04-03] MEDS: ZINC SULFATE 220 MG CAPSULE (FP) PO SCH ×2 (09:48→22:02)
[2021-04-03] MEDS: FAMOTIDINE 20 MG TABLET PO SCH (09:48)
[2021-04-03] MEDS: ASCORBIC ACID 500 MG TABLET (FP) PO SCH (09:48)
[2021-04-03] MEDS: ENOXAPARIN NA (PORCINE) 40 MG/0.4 ML DISP.SYRIN SQ SCH ×2 (09:48→22:02)
[2021-04-03 14:19] LABS: LDH 370 U/L (87-246)
[2021-04-04] MEDS ORDERED: MAG HYDROX/AL HYDROX/SIMETH 30 ML UNIT-DOSE CUP PO ONE (00:54)
[2021-04-04] MEDS ORDERED: PT OWN MED DRAWER 7, Y5N ONE (00:55)
[2021-04-04] MEDS: BUDESONIDE 0.5 MG/2 ML INH SUSP VIAL NEB SCH ×2 (07:42→20:45)
[2021-04-04] MEDS: ZINC SULFATE 220 MG CAPSULE (FP) PO SCH ×2 (11:00→21:41)
[2021-04-04] MEDS: CHOLECALCIFEROL (VIT D3) 1,000 UNIT (25 MCG) TABLET PO SCH (11:00)
[2021-04-04] MEDS: ENOXAPARIN NA (PORCINE) 40 MG/0.4 ML DISP.SYRIN SQ SCH ×2 (11:00→21:41)
[2021-04-04] MEDS: DEXAMETHASONE SOD PHOSPHATE 10 MG/1 ML VIAL IVPUSH SCH (11:00)
[2021-04-04] MEDS: ASCORBIC ACID 500 MG TABLET (FP) PO SCH (11:00)
[2021-04-04] MEDS: FAMOTIDINE 20 MG TABLET PO SCH (11:00)
[2021-04-05 06:57] LABS: BASO % 0.3 % (0-2.0); EOS % 1.6 % (0-4.5); HEMATOCRIT 43.6 % (35.4-49); HEMOGLOBIN 14.9 GM/dL (11.7-16.9); LYMPH % 11.7 % (8-40); MCH 30.6 pg (25.7-33.7); MCHC 34.2 g/dl (32.0-35.9); MEAN CELL VOLUME 89.7 fl (80-96); MEAN PLT VOLUME 7.1 fl (7.5-11.1); MONO % 6.8 % (3.8-10.2); NEUT % 79.6 % (42.8-82.8); PLATELET COUNT 246 K/MM3 (134-434); RBC 4.86 M/mm3 (4.00-5.60); RDW 14.2 % (11.9-15.9); WHITE BLOOD COUNT 14.9 K/mm3 (4.0-10.0)
[2021-04-05 07:13] LABS: CHLORIDE 107 mmol/L (98-107); SODIUM 139 mmol/L (136-145)
[2021-04-05 07:17] LABS: ALBUMIN 2.9 g/dl (3.4-5.0); ANION GAP 7 MMOL/L (8-16); BLOOD UREA NITROGEN 16.7 mg/dL (7-18); CO2 25 mmol/L (21-32); GLUCOSE,RANDOM 103 mg/dL (74-106)
[2021-04-05 07:18] LABS: MAGNESIUM 2.3 mg/dL (1.8-2.4)
[2021-04-05 07:20] LABS: CREATININE 0.7 mg/dL (0.55-1.3); SGOT/AST 34 U/L (15-37); SGPT/ALT 123 U/L (13-61)
[2021-04-05 07:22] LABS: BILIRUBIN,TOTAL 0.4 mg/dL (0.2-1); TOT PROT 5.9 g/dl (6.4-8.2)
[2021-04-05 07:23] LABS: ALK PHOS 98 U/L (45-117)
[2021-04-05] MEDS: BUDESONIDE 0.5 MG/2 ML INH SUSP VIAL NEB SCH ×2 (07:35→21:00)
[2021-04-05] MEDS: CHOLECALCIFEROL (VIT D3) 1,000 UNIT (25 MCG) TABLET PO SCH (10:13)
[2021-04-05] MEDS: ZINC SULFATE 220 MG CAPSULE (FP) PO SCH ×2 (10:13→21:39)
[2021-04-05] MEDS: ENOXAPARIN NA (PORCINE) 40 MG/0.4 ML DISP.SYRIN SQ SCH ×2 (10:13→21:39)
[2021-04-05] MEDS: FAMOTIDINE 20 MG TABLET PO SCH (10:14)
[2021-04-05] MEDS: DEXAMETHASONE SOD PHOSPHATE 10 MG/1 ML VIAL IVPUSH SCH (10:14)
[2021-04-05] MEDS: ASCORBIC ACID 500 MG TABLET (FP) PO SCH (10:14)
[2021-04-05] MEDS: guaiFENesin/D-M SUGAR-FREE/ACLHOL-FREE 118 ML BOTTLE PO PRN (21:39)
[2021-04-05 22:01] LABS: LDH 415 U/L (87-246)
[2021-04-06] MEDS: BUDESONIDE 0.5 MG/2 ML INH SUSP VIAL NEB SCH ×2 (07:55→20:05)
[2021-04-06] MEDS ORDERED: PT OWN MED DRAWER 7, Y5N ONE (10:02)
[2021-04-06] MEDS: ZINC SULFATE 220 MG CAPSULE (FP) PO SCH ×2 (10:17→22:09)
[2021-04-06] MEDS: CHOLECALCIFEROL (VIT D3) 1,000 UNIT (25 MCG) TABLET PO SCH (10:18)
[2021-04-06] MEDS: FAMOTIDINE 20 MG TABLET PO SCH (10:18)
[2021-04-06] MEDS: ASCORBIC ACID 500 MG TABLET (FP) PO SCH (10:18)
[2021-04-06] MEDS: DEXAMETHASONE SOD PHOSPHATE 10 MG/1 ML VIAL IVPUSH SCH (10:18)
[2021-04-06] MEDS: ENOXAPARIN NA (PORCINE) 40 MG/0.4 ML DISP.SYRIN SQ SCH ×2 (10:19→22:08)
[2021-04-07 07:19] LABS: BASO % 0.3 % (0-2.0); EOS % 1.7 % (0-4.5); HEMATOCRIT 42.6 % (35.4-49); HEMOGLOBIN 14.8 GM/dL (11.7-16.9); LYMPH % 14.8 % (8-40); MCH 30.7 pg (25.7-33.7); MCHC 34.8 g/dl (32.0-35.9); MEAN CELL VOLUME 88.2 fl (80-96); MEAN PLT VOLUME 6.9 fl (7.5-11.1); MONO % 6.6 % (3.8-10.2); NEUT % 76.6 % (42.8-82.8); PLATELET COUNT 218 K/MM3 (134-434); RBC 4.83 M/mm3 (4.00-5.60); RDW 14.5 % (11.9-15.9); WHITE BLOOD COUNT 12.8 K/mm3 (4.0-10.0)
[2021-04-07] MEDS: BUDESONIDE 0.5 MG/2 ML INH SUSP VIAL NEB SCH ×2 (07:40→20:05)
[2021-04-07 07:42] LABS: CHLORIDE 104 mmol/L (98-107); SODIUM 138 mmol/L (136-145)
[2021-04-07 07:51] LABS: ANION GAP 7 MMOL/L (8-16); CALCIUM 8.1 mg/dL (8.5-10.1); CO2 27 mmol/L (21-32); GLUCOSE,RANDOM 73 mg/dL (74-106); MAGNESIUM 2.2 mg/dL (1.8-2.4)
[2021-04-07 07:54] LABS: CREATININE 0.7 mg/dL (0.55-1.3); PHOSPHOROUS 3.8 mg/dL (2.5-4.9); SGPT/ALT 117 U/L (13-61)
[2021-04-07 07:55] LABS: BILIRUBIN,TOTAL 0.6 mg/dL (0.2-1); LDH 340 U/L (87-246); SGOT/AST 22 U/L (15-37)
[2021-04-07 07:57] LABS: ALK PHOS 87 U/L (45-117)
[2021-04-07] MEDS ORDERED: PT OWN MED DRAWER 7, Y5N ONE (09:33)
[2021-04-07 09:59] LABS: ANISOCYTOSIS 0; MACROCYTOSIS 0; PLATELET ESTIMATE NORMAL
[2021-04-07] MEDS: ZINC SULFATE 220 MG CAPSULE (FP) PO SCH ×2 (10:02→21:29)
[2021-04-07] MEDS: ASCORBIC ACID 500 MG TABLET (FP) PO SCH (10:02)
[2021-04-07] MEDS: CHOLECALCIFEROL (VIT D3) 1,000 UNIT (25 MCG) TABLET PO SCH (10:02)
[2021-04-07] MEDS: ENOXAPARIN NA (PORCINE) 40 MG/0.4 ML DISP.SYRIN SQ SCH ×2 (10:02→21:29)
[2021-04-07] MEDS: FAMOTIDINE 20 MG TABLET PO SCH (10:02)
[2021-04-07] MEDS: DEXAMETHASONE SOD PHOSPHATE 10 MG/1 ML VIAL IVPUSH SCH (10:03)
[2021-04-08 07:21] LABS: BASO % 0.7 % (0-2.0); EOS % 3.6 % (0-4.5); HEMATOCRIT 46.4 % (35.4-49); HEMOGLOBIN 15.7 GM/dL (11.7-16.9); LYMPH % 22.2 % (8-40); MCH 30.4 pg (25.7-33.7); MCHC 33.8 g/dl (32.0-35.9); MEAN PLT VOLUME 7.3 fl (7.5-11.1); MONO % 7.2 % (3.8-10.2); NEUT % 66.3 % (42.8-82.8); PLATELET COUNT 202 K/MM3 (134-434); RBC 5.16 M/mm3 (4.00-5.60); RDW 14.4 % (11.9-15.9); WHITE BLOOD COUNT 10.2 K/mm3 (4.0-10.0)
[2021-04-08 07:36] LABS: CHLORIDE 106 mmol/L (98-107); SODIUM 140 mmol/L (136-145)
[2021-04-08] MEDS: BUDESONIDE 0.5 MG/2 ML INH SUSP VIAL NEB SCH ×2 (07:45→20:27)
[2021-04-08 07:56] LABS: CALCIUM 8.3 mg/dL (8.5-10.1)
[2021-04-08 07:57] LABS: BLOOD UREA NITROGEN 15.3 mg/dL (7-18); CO2 25 mmol/L (21-32); GLUCOSE,RANDOM 77 mg/dL (74-106); MAGNESIUM 2.3 mg/dL (1.8-2.4)
[2021-04-08 08:00] LABS: CREATININE 0.6 mg/dL (0.55-1.3); PHOSPHOROUS 4.4 mg/dL (2.5-4.9)
[2021-04-08 08:37] LABS: LDH 334 U/L (87-246)
[2021-04-08 08:40] LABS: ANION GAP 9 MMOL/L (8-16)
[2021-04-08 08:45] LABS: ANISOCYTOSIS 0; MACROCYTOSIS 0; PLATELET ESTIMATE NORMAL
[2021-04-08] MEDS: ASCORBIC ACID 500 MG TABLET (FP) PO SCH (09:47)
[2021-04-08] MEDS: FAMOTIDINE 20 MG TABLET PO SCH (09:47)
[2021-04-08] MEDS: CHOLECALCIFEROL (VIT D3) 1,000 UNIT (25 MCG) TABLET PO SCH (09:47)
[2021-04-08] MEDS: DEXAMETHASONE SOD PHOSPHATE 10 MG/1 ML VIAL IVPUSH SCH (09:47)
[2021-04-08] MEDS: ZINC SULFATE 220 MG CAPSULE (FP) PO SCH ×2 (09:47→21:02)
[2021-04-08] MEDS: MELATONIN 5 MG TABLETS PO PRN (23:47)
[2021-04-09] MEDS: BUDESONIDE 0.5 MG/2 ML INH SUSP VIAL NEB SCH ×2 (07:30→20:34)
[2021-04-09] MEDS: CHOLECALCIFEROL (VIT D3) 1,000 UNIT (25 MCG) TABLET PO SCH (09:49)
[2021-04-09] MEDS: DEXAMETHASONE SOD PHOSPHATE 10 MG/1 ML VIAL IVPUSH SCH (09:49)
[2021-04-09] MEDS: ASCORBIC ACID 500 MG TABLET (FP) PO SCH (09:49)
[2021-04-09] MEDS: FAMOTIDINE 20 MG TABLET PO SCH (09:49)
[2021-04-09] MEDS: ZINC SULFATE 220 MG CAPSULE (FP) PO SCH ×2 (09:49→21:00)
[2021-04-09] MEDS: ENOXAPARIN NA (PORCINE) 40 MG/0.4 ML DISP.SYRIN SQ SCH (21:00)
[2021-04-10] MEDS: MELATONIN 5 MG TABLETS PO PRN (02:28)
[2021-04-10 06:57] LABS: CALCIUM 8.4 mg/dL (8.5-10.1)
[2021-04-10 06:58] LABS: BLOOD UREA NITROGEN 16.8 mg/dL (7-18)
[2021-04-10 07:01] LABS: CREATININE 0.7 mg/dL (0.55-1.3)
[2021-04-10 07:22] LABS: HEMATOCRIT 44.1 % (35.4-49); HEMOGLOBIN 14.5 GM/dL (11.7-16.9); MCH 29.7 pg (25.7-33.7); MEAN PLT VOLUME 7.5 fl (7.5-11.1); PLATELET COUNT 200 K/MM3 (134-434); RDW 14.9 % (11.9-15.9); WHITE BLOOD COUNT 11.8 K/mm3 (4.0-10.0)
[2021-04-10] MEDS: BUDESONIDE 0.5 MG/2 ML INH SUSP VIAL NEB SCH ×2 (07:45→20:01)
[2021-04-10] MEDS: ZINC SULFATE 220 MG CAPSULE (FP) PO SCH ×2 (09:42→21:24)
[2021-04-10] MEDS: DEXAMETHASONE SOD PHOSPHATE 10 MG/1 ML VIAL IVPUSH SCH (09:42)
[2021-04-10] MEDS: ENOXAPARIN NA (PORCINE) 40 MG/0.4 ML DISP.SYRIN SQ SCH ×2 (09:42→21:24)
[2021-04-10] MEDS: CHOLECALCIFEROL (VIT D3) 1,000 UNIT (25 MCG) TABLET PO SCH (09:42)
[2021-04-10] MEDS: ASCORBIC ACID 500 MG TABLET (FP) PO SCH (09:42)
[2021-04-10] MEDS: FAMOTIDINE 20 MG TABLET PO SCH (09:43)
[2021-04-11 07:30] LABS: HEMATOCRIT 44.4 % (35.4-49); HEMOGLOBIN 15.1 GM/dL (11.7-16.9); MCH 30.5 pg (25.7-33.7); MEAN CELL VOLUME 89.6 fl (80-96); MEAN PLT VOLUME 7.1 fl (7.5-11.1); PLATELET COUNT 184 10^3/uL (134-434); RBC 4.95 M/mm3 (4.00-5.60); RDW 14.7 % (11.9-15.9); WHITE BLOOD COUNT 14.6 K/mm3 (4.0-10.0)
[2021-04-11] MEDS: BUDESONIDE 0.5 MG/2 ML INH SUSP VIAL NEB SCH ×2 (07:50→20:45)
[2021-04-11] MEDS: ZINC SULFATE 220 MG CAPSULE (FP) PO SCH ×2 (09:10→22:12)
[2021-04-11] MEDS: DEXAMETHASONE 4 MG TABLET (FP) PO SCH (09:10)
[2021-04-11] MEDS: ASCORBIC ACID 500 MG TABLET (FP) PO SCH (09:10)
[2021-04-11] MEDS: FAMOTIDINE 20 MG TABLET PO SCH (09:11)
[2021-04-11] MEDS: CHOLECALCIFEROL (VIT D3) 1,000 UNIT (25 MCG) TABLET PO SCH (09:11)
[2021-04-11] MEDS: ENOXAPARIN NA (PORCINE) 40 MG/0.4 ML DISP.SYRIN SQ SCH ×2 (09:11→22:13)
[2021-04-11] MEDS: MELATONIN 5 MG TABLETS PO PRN (22:15)
[2021-04-12] MEDS: BUDESONIDE 0.5 MG/2 ML INH SUSP VIAL NEB SCH ×2 (07:25→20:10)
[2021-04-12] MEDS: ASCORBIC ACID 500 MG TABLET (FP) PO SCH (10:10)
[2021-04-12] MEDS: ZINC SULFATE 220 MG CAPSULE (FP) PO SCH ×2 (10:10→21:54)
[2021-04-12] MEDS: CHOLECALCIFEROL (VIT D3) 1,000 UNIT (25 MCG) TABLET PO SCH (10:10)
[2021-04-12] MEDS: FAMOTIDINE 20 MG TABLET PO SCH (10:10)
[2021-04-12] MEDS: DEXAMETHASONE 4 MG TABLET (FP) PO SCH (10:10)
[2021-04-12] MEDS: ENOXAPARIN NA (PORCINE) 40 MG/0.4 ML DISP.SYRIN SQ SCH ×2 (10:11→21:54)
[2021-04-13] MEDS: BUDESONIDE 0.5 MG/2 ML INH SUSP VIAL NEB SCH ×2 (07:25→20:12)
[2021-04-13] MEDS: ENOXAPARIN NA (PORCINE) 40 MG/0.4 ML DISP.SYRIN SQ SCH ×2 (10:01→22:19)
[2021-04-13] MEDS: FAMOTIDINE 20 MG TABLET PO SCH (10:01)
[2021-04-13] MEDS: CHOLECALCIFEROL (VIT D3) 1,000 UNIT (25 MCG) TABLET PO SCH (10:01)
[2021-04-13] MEDS: ZINC SULFATE 220 MG CAPSULE (FP) PO SCH ×2 (10:01→22:19)
[2021-04-13] MEDS: DEXAMETHASONE 4 MG TABLET (FP) PO SCH (10:01)
[2021-04-13] MEDS: ASCORBIC ACID 500 MG TABLET (FP) PO SCH (10:01)
[2021-04-13] MEDS: MELATONIN 5 MG TABLETS PO PRN (22:45)
[2021-04-14 06:49] LABS: BASO % 0.6 % (0-2.0); EOS % 0.2 % (0-4.5); HEMATOCRIT 43.9 % (35.4-49); HEMOGLOBIN 14.9 GM/dL (11.7-16.9); MCH 30.5 pg (25.7-33.7); MCHC 33.8 g/dl (32.0-35.9); MEAN CELL VOLUME 90.2 fl (80-96); MEAN PLT VOLUME 7.1 fl (7.5-11.1); MONO % 9.2 % (3.8-10.2); PLATELET COUNT 183 10^3/uL (134-434); RBC 4.87 M/mm3 (4.00-5.60); RDW 15.4 % (11.9-15.9); WHITE BLOOD COUNT 11.6 K/mm3 (4.0-10.0)
[2021-04-14 07:07] LABS: CHLORIDE 104 mmol/L (98-107); SODIUM 138 mmol/L (136-145)
[2021-04-14 07:12] LABS: ALBUMIN 3.1 g/dl (3.4-5.0); ANION GAP 6 MMOL/L (8-16); CALCIUM 8.6 mg/dL (8.5-10.1); CO2 27 mmol/L (21-32)
[2021-04-14 07:13] LABS: GLUCOSE,RANDOM 93 mg/dL (74-106); MAGNESIUM 2.2 mg/dL (1.8-2.4)
[2021-04-14 07:15] LABS: SGOT/AST 13 U/L (15-37); SGPT/ALT 60 U/L (13-61)
[2021-04-14 07:16] LABS: CREATININE 0.7 mg/dL (0.55-1.3); LDH 238 U/L (87-246); PHOSPHOROUS 4.4 mg/dL (2.5-4.9)
[2021-04-14 07:17] LABS: BILIRUBIN,TOTAL 0.6 mg/dL (0.2-1)
[2021-04-14 07:18] LABS: ALK PHOS 76 U/L (45-117)
[2021-04-14] MEDS: BUDESONIDE 0.5 MG/2 ML INH SUSP VIAL NEB SCH ×2 (07:45→20:29)
[2021-04-14] MEDS: DEXAMETHASONE 4 MG TABLET (FP) PO SCH (09:43)
[2021-04-14] MEDS: CHOLECALCIFEROL (VIT D3) 1,000 UNIT (25 MCG) TABLET PO SCH (09:43)
[2021-04-14] MEDS: ASCORBIC ACID 500 MG TABLET (FP) PO SCH (09:44)
[2021-04-14] MEDS: ENOXAPARIN NA (PORCINE) 40 MG/0.4 ML DISP.SYRIN SQ SCH ×2 (09:45→21:57)
[2021-04-14] MEDS: ZINC SULFATE 220 MG CAPSULE (FP) PO SCH ×2 (09:45→21:57)
[2021-04-14] MEDS: FAMOTIDINE 20 MG TABLET PO SCH (09:45)
[2021-04-14 10:15] LABS: ANISOCYTOSIS 1+; MACROCYTOSIS 0; PLATELET ESTIMATE NORMAL; TEAR DROP CELLS 1+
[2021-04-14] MEDS: MELATONIN 5 MG TABLETS PO PRN (21:58)
[2021-04-15] MEDS: BUDESONIDE 0.5 MG/2 ML INH SUSP VIAL NEB SCH ×2 (07:35→20:10)
[2021-04-15] MEDS: ENOXAPARIN NA (PORCINE) 40 MG/0.4 ML DISP.SYRIN SQ SCH ×2 (09:04→21:08)
[2021-04-15] MEDS: ASCORBIC ACID 500 MG TABLET (FP) PO SCH (09:04)
[2021-04-15] MEDS: CHOLECALCIFEROL (VIT D3) 1,000 UNIT (25 MCG) TABLET PO SCH (09:05)
[2021-04-15] MEDS: DEXAMETHASONE 4 MG TABLET (FP) PO SCH (09:05)
[2021-04-15] MEDS: ZINC SULFATE 220 MG CAPSULE (FP) PO SCH ×2 (09:05→21:08)
[2021-04-15] MEDS: FAMOTIDINE 20 MG TABLET PO SCH (09:05)
[2021-04-15] MEDS ORDERED: MELATONIN 5 MG TABLETS PO ONE (20:14)
[2021-04-16] MEDS: BUDESONIDE 0.5 MG/2 ML INH SUSP VIAL NEB SCH ×2 (08:41→20:19)
[2021-04-16] MEDS: FAMOTIDINE 20 MG TABLET PO SCH (10:25)
[2021-04-16] MEDS: CHOLECALCIFEROL (VIT D3) 1,000 UNIT (25 MCG) TABLET PO SCH (10:25)
[2021-04-16] MEDS: DEXAMETHASONE 4 MG TABLET (FP) PO SCH (10:25)
[2021-04-16] MEDS: ZINC SULFATE 220 MG CAPSULE (FP) PO SCH ×2 (10:25→21:16)
[2021-04-16] MEDS: ENOXAPARIN NA (PORCINE) 40 MG/0.4 ML DISP.SYRIN SQ SCH ×2 (10:25→21:16)
[2021-04-16] MEDS: ASCORBIC ACID 500 MG TABLET (FP) PO SCH (10:25)
[2021-04-17] MEDS: MELATONIN 5 MG TABLETS PO PRN ×2 (00:19→23:26)
[2021-04-17 06:48] LABS: HEMATOCRIT 45.9 % (35.4-49); HEMOGLOBIN 15.1 GM/dL (11.7-16.9); MCH 30.1 pg (25.7-33.7); MCHC 32.9 g/dl (32.0-35.9); MEAN CELL VOLUME 91.5 fl (80-96); MEAN PLT VOLUME 6.9 fl (7.5-11.1); PLATELET COUNT 224 10^3/uL (134-434); RBC 5.02 M/mm3 (4.00-5.60); RDW 15.8 % (11.9-15.9)
[2021-04-17 06:57] LABS: ALBUMIN 2.9 g/dl (3.4-5.0); BLOOD UREA NITROGEN 18.9 mg/dL (7-18); CALCIUM 8.6 mg/dL (8.5-10.1); MAGNESIUM 2.3 mg/dL (1.8-2.4)
[2021-04-17 07:00] LABS: CREATININE 0.7 mg/dL (0.55-1.3); PHOSPHOROUS 3.6 mg/dL (2.5-4.9)
[2021-04-17 07:01] LABS: BILIRUBIN,TOTAL 0.8 mg/dL (0.2-1); TOT PROT 5.7 g/dl (6.4-8.2)
[2021-04-17] MEDS: BUDESONIDE 0.5 MG/2 ML INH SUSP VIAL NEB SCH ×2 (07:35→20:41)
[2021-04-17] MEDS: ENOXAPARIN NA (PORCINE) 40 MG/0.4 ML DISP.SYRIN SQ SCH ×2 (09:18→21:05)
[2021-04-17] MEDS: FAMOTIDINE 20 MG TABLET PO SCH (09:18)
[2021-04-17] MEDS: DEXAMETHASONE 4 MG TABLET (FP) PO SCH (09:19)
[2021-04-17] MEDS: CHOLECALCIFEROL (VIT D3) 1,000 UNIT (25 MCG) TABLET PO SCH (09:19)
[2021-04-17] MEDS: ASCORBIC ACID 500 MG TABLET (FP) PO SCH (09:19)
[2021-04-17] MEDS: ZINC SULFATE 220 MG CAPSULE (FP) PO SCH ×2 (09:19→21:05)
[2021-04-17] MEDS ORDERED: PT OWN MED DRAWER 7, Y5N ONE (18:10)
[2021-04-18 07:23] LABS: HEMATOCRIT 44.2 % (35.4-49); HEMOGLOBIN 14.9 GM/dL (11.7-16.9); MCH 30.3 pg (25.7-33.7); MCHC 33.6 g/dl (32.0-35.9); MEAN CELL VOLUME 90.1 fl (80-96); MEAN PLT VOLUME 6.7 fl (7.5-11.1); PLATELET COUNT 230 10^3/uL (134-434); RBC 4.91 M/mm3 (4.00-5.60); RDW 15.6 % (11.9-15.9); WHITE BLOOD COUNT 12.1 K/mm3 (4.0-10.0)
[2021-04-18 07:40] LABS: CHLORIDE 105 mmol/L (98-107); SODIUM 141 mmol/L (136-145)
[2021-04-18 07:54] LABS: CALCIUM 8.5 mg/dL (8.5-10.1)
[2021-04-18 07:55] LABS: ANION GAP 9 MMOL/L (8-16); CO2 26 mmol/L (21-32); GLUCOSE,RANDOM 81 mg/dL (74-106); MAGNESIUM 2.2 mg/dL (1.8-2.4)
[2021-04-18 07:56] LABS: CREATININE 0.7 mg/dL (0.55-1.3)
[2021-04-18 07:58] LABS: PHOSPHOROUS 4.1 mg/dL (2.5-4.9)
[2021-04-18 07:59] LABS: BLOOD UREA NITROGEN 16.7 mg/dL (7-18)
[2021-04-18 09:06] LABS: ERYTHROCYTE SEDIMENTATION RATE 3 mm/hr (0-10)
[2021-04-18] MEDS: BUDESONIDE 0.5 MG/2 ML INH SUSP VIAL NEB SCH ×2 (09:09→20:20)
[2021-04-18] MEDS: FAMOTIDINE 20 MG TABLET PO SCH (11:06)
[2021-04-18] MEDS: ZINC SULFATE 220 MG CAPSULE (FP) PO SCH ×2 (11:06→21:53)
[2021-04-18] MEDS: ENOXAPARIN NA (PORCINE) 40 MG/0.4 ML DISP.SYRIN SQ SCH ×2 (11:06→21:53)
[2021-04-18] MEDS: ASCORBIC ACID 500 MG TABLET (FP) PO SCH (11:07)
[2021-04-18] MEDS: CHOLECALCIFEROL (VIT D3) 1,000 UNIT (25 MCG) TABLET PO SCH (11:07)
[2021-04-18] MEDS: DEXAMETHASONE 4 MG TABLET (FP) PO SCH (11:07)
[2021-04-19] MEDS: MELATONIN 5 MG TABLETS PO PRN ×2 (01:14→22:19)
[2021-04-19 07:51] LABS: CALCIUM 8.4 mg/dL (8.5-10.1)
[2021-04-19 07:53] LABS: BLOOD UREA NITROGEN 15.6 mg/dL (7-18); MAGNESIUM 2.1 mg/dL (1.8-2.4)
[2021-04-19 07:55] LABS: CREATININE 0.7 mg/dL (0.55-1.3)
[2021-04-19 07:56] LABS: PHOSPHOROUS 3.9 mg/dL (2.5-4.9)
[2021-04-19 07:57] LABS: BILIRUBIN,TOTAL 0.5 mg/dL (0.2-1)
[2021-04-19 07:58] LABS: EOS % 0.2 % (0-4.5); HEMATOCRIT 44.6 % (35.4-49); HEMOGLOBIN 14.8 GM/dL (11.7-16.9); LYMPH % 17.2 % (8-40); MCH 30.4 pg (25.7-33.7); MCHC 33.3 g/dl (32.0-35.9); MEAN CELL VOLUME 91.4 fl (80-96); MEAN PLT VOLUME 7.1 fl (7.5-11.1); MONO % 6.6 % (3.8-10.2); PLATELET COUNT 229 10^3/uL (134-434); RBC 4.87 M/mm3 (4.00-5.60); RDW 15.6 % (11.9-15.9); TOT PROT 5.7 g/dl (6.4-8.2); WHITE BLOOD COUNT 10.9 K/mm3 (4.0-10.0)
[2021-04-19] MEDS: BUDESONIDE 0.5 MG/2 ML INH SUSP VIAL NEB SCH ×2 (08:07→20:15)
[2021-04-19] MEDS: FAMOTIDINE 20 MG TABLET PO SCH (09:52)
[2021-04-19] MEDS: ZINC SULFATE 220 MG CAPSULE (FP) PO SCH (09:52)
[2021-04-19] MEDS: ENOXAPARIN NA (PORCINE) 40 MG/0.4 ML DISP.SYRIN SQ SCH ×2 (09:52→22:18)
[2021-04-19] MEDS: ASCORBIC ACID 500 MG TABLET (FP) PO SCH (09:52)
[2021-04-19] MEDS: DEXAMETHASONE 4 MG TABLET (FP) PO SCH (09:52)
[2021-04-19] MEDS: CHOLECALCIFEROL (VIT D3) 1,000 UNIT (25 MCG) TABLET PO SCH (09:52)
[2021-04-19 09:56] LABS: ANISOCYTOSIS 0; MACROCYTOSIS 0; PLATELET ESTIMATE NORMAL
[2021-04-19] MEDS ORDERED: MAG HYDROX/AL HYDROX/SIMETH 30 ML UNIT-DOSE CUP PO ONE (23:16)
[2021-04-20] MEDS: BUDESONIDE 0.5 MG/2 ML INH SUSP VIAL NEB SCH ×2 (08:10→20:06)
[2021-04-20] MEDS: ASCORBIC ACID 500 MG TABLET (FP) PO SCH (09:29)
[2021-04-20] MEDS: FAMOTIDINE 20 MG TABLET PO SCH (09:29)
[2021-04-20] MEDS: CHOLECALCIFEROL (VIT D3) 1,000 UNIT (25 MCG) TABLET PO SCH (09:29)
[2021-04-20] MEDS: ENOXAPARIN NA (PORCINE) 40 MG/0.4 ML DISP.SYRIN SQ SCH ×2 (09:30→22:45)
[2021-04-20] MEDS: DEXAMETHASONE 4 MG TABLET (FP) PO SCH (09:30)
[2021-04-20] MEDS: MELATONIN 5 MG TABLETS PO PRN (22:45)
[2021-04-21] MEDS: BUDESONIDE 0.5 MG/2 ML INH SUSP VIAL NEB SCH (07:30)
[2021-04-21] MEDS: CHOLECALCIFEROL (VIT D3) 1,000 UNIT (25 MCG) TABLET PO SCH (09:17)
[2021-04-21] MEDS: DEXAMETHASONE 4 MG TABLET (FP) PO SCH (09:17)
[2021-04-21] MEDS: ENOXAPARIN NA (PORCINE) 40 MG/0.4 ML DISP.SYRIN SQ SCH (09:17)
[2021-04-21] MEDS: FAMOTIDINE 20 MG TABLET PO SCH (09:17)
[2021-04-21] MEDS: ASCORBIC ACID 500 MG TABLET (FP) PO SCH (09:17)
[2021-04-21 10:21] VITALS: BP 130/72; TEMP 97.9
[2021-04-21 14:27] VITALS: PULSE 102
== END 2021-04-21 16:27 | disposition home or self-care (01) | DRG 137 ==
LOC: JER 15:47 → JERBED 17:11 → J8W 03-22 00:16 → J4S 03-22 20:24
PROVIDERS: ADMIT Internal Medicine; ATTEND Internal Medicine
PROC: XW033E5 Introduction of Remdesivir Anti-infective into Peripheral Vein, Percutaneous Approach, New Technology Group 5 (ICD-10-PCS; principal; 2021-03-22)
PROC: XW033H5 Introduction of Tocilizumab into Peripheral Vein, Percutaneous Approach, New Technology Group 5 (ICD-10-PCS; 2021-03-24)
PROC: XW13325 Transfusion of Convalescent Plasma (Nonautologous) into Peripheral Vein, Percutaneous Approach, New Technology Group 5 (ICD-10-PCS; 2021-03-24)
DX: U07.1 COVID-19 (principal); J12.82 Pneumonia due to coronavirus disease 2019; J96.01 Acute respiratory failure with hypoxia; R50.9 Fever, unspecified; M79.10 Myalgia, unspecified site; E66.9 Obesity, unspecified; G47.33 Obstructive sleep apnea (adult) (pediatric); Z68.36 Body mass index [BMI] 36.0-36.9, adult; R94.31 Abnormal electrocardiogram [ECG] [EKG]; R55 Syncope and collapse; F41.8 Other specified anxiety disorders; I45.10 Unspecified right bundle-branch block; R94.5 Abnormal results of liver function studies; G47.00 Insomnia, unspecified; I49.8 Other specified cardiac arrhythmias
CPT/HCPCS: 36415; 36430; 71045-TC-FY; 71275-TC; 80048; 80053; 80061; 81003; 82248; 82550; 82553; 82728; 82803; 82962; 83036; 83605; 83615; 83721; 83735; 84100; 84443; 84484; 85025; 85027; 85379; 85610; 85651; 85730; 86140; 86769; 86850; 86900; 86901; 87040; 87086; 87804; 87899; 93005; 93010; 93306-TC; 94010; 94640; 94660; 94761; 97116-GP; 97161-GP; 99291; C9399; C9803; J0131; J1100; J3262; P9017; Q9967; U0003; U0005